=== PATIENT | male | born 1960 | race Caucasian/White ===

== ENCOUNTER 2024-01-23 12:06 | Outpatient (CLI) | payer MEDICAID, SELFPAY ==
--- NOTE | ~2024-01-23 | XR_ITS ---
Right Shoulder Technique: AP and scapular Y views were obtained. Clinical History: Pain Findings: No fracture or dislocation is seen. Osseous alignment is anatomic. The glenohumeral joint i s intact. Mild AC joint degenerative change present. Soft tissues are unremarkable. Impression: Mild AC joint degenerative change present. Reviewed, dictated and finalized at location . Impression: Mild AC joint degenerative change present.
== END 2024-01-23 12:07 | disposition home or self-care (01) ==
PROVIDERS: PCP Physician Assistant; Visit Provider Physician Assistant
DX: M25.511 Pain in right shoulder (principal)
CPT/HCPCS: 73030

== ENCOUNTER 2024-01-29 10:52 | Outpatient (CLI) | payer MEDICAID, SELFPAY ==
--- NOTE | ~2024-01-29 | MR_ITS ---
MRI of the right shoulder Technique: Axial proton-density fat-sat images, coronal proton density fat-sat and T2 fat-sat images, and sagittal T1-weighted and T2 fat-sat images were acquired. Clinical History: Pain Findings: There is moderate AC joint degenerative change, with mild bony productive change in particu lar at the distal clavicle. Coracoclavicular, coracoacromial, and coracohumeral ligaments are intact. There is mild supraspinatus and infraspinatus tendinosis, without partial or full-thickness tear. Sub scapularis tendon is intact. Tendon of the long head of the biceps is intact. Suspected focal, subtle, linear superior labral tear, without anterior or posterior extension. There is thickening and increased signal of the inferior glenohumeral ligament. There is no significa nt degenerative change or effusion of the glenohumeral joint. No fluid distention of the subacromial/ subdeltoid bursa. No muscle atrophy or edema. Impression: Findings suggestive of adhesive capsulitis. Mild rotator cuff tendinosis. Possible subtle linear superior labral tear. Moderate AC joint degenerative change. Reviewed, dictated and finalized at [facility]. Impression: Findings suggestive of adhesive capsulitis. Mild rotator cuff tendinosis. Possible subtle linear superior labral tear. Moderate AC joint degenerative change.
== END 2024-01-29 10:53 ==
LOC: MICIMG 10:53
PROVIDERS: PCP Physician Assistant; Visit Provider Physician Assistant
DX: M25.511 Pain in right shoulder (principal); M77.8 Other enthesopathies, not elsewhere classified
CPT/HCPCS: 73221

== ENCOUNTER 2024-07-06 10:17 | Outpatient (CLI) | payer MEDICAID, SELFPAY ==
--- NOTE | ~2024-07-06 | XR_ITS ---
XR knee RT min 4V Ordering provider: Aron Tinsley, PA History: . PAIN IN RT KNEE AND PAIN IN LT FOOT . Comparison: None. FINDINGS: BONES: No acute fracture or dislocation. JOINT SPACES: Osteophyte formation of the tibial spines. Mild narrowing of the medial compartment. SOFT TISSUES: Normal. IMPRESSION: No acute osseous abnormality right knee. Mild osteoarthritic changes. Reviewed, dictated and finalized at location A. MICS TEST ENGINEER
--- NOTE | ~2024-07-06 | XR_ITS ---
XR foot LT min 3V Ordering provider: Aron Tinsley, PA History: . PAIN IN RT KNEE AND PAIN IN LT FOOT . Comparison: The FINDINGS: BONES: No acute fracture or dislocation. Calcaneal spur. Mild Hallux valgus. JOINT SPACES: Normal. No tarsal coalition. SOFT TISSUES: Normal. IMPRESSION: No acute osseous abnormality left foot. Reviewed, dictated and finalized at location A. R CUTTER MACHINE
== END 2024-07-06 10:18 | disposition home or self-care (01) ==
LOC: ANHIMG 10:20
PROVIDERS: PCP Physician Assistant; Visit Provider Physician Assistant
DX: M79.672 Pain in left foot (principal); M17.11 Unilateral primary osteoarthritis, right knee
CPT/HCPCS: 73564; 73630

== ENCOUNTER 2024-08-13 07:38 | Outpatient (CLI) | payer OTHER, SELFPAY ==
--- NOTE | ~2024-08-13 | US_ITS ---
Limited Abdominal Sonogram: Real-time sonographic imaging of the right upper quadrant was performed. Clinical History: Right upper quadrant pain Findings: The liver appears echogenic with no evidence of mass lesion or bile duct dilatation. Liver measures 21.6 cm in length. Main portal vein demonstrates normal direction of flow. The gallbladder is well distended, and appears normal with no evidence of gallstone or wall thickening. The common bi le duct measures 3 mm. The visualized pancreas, aorta, and IVC are unremarkable. Right kidney measur es 11.2 cm in length, without hydronephrosis or renal stone. Right renal cyst noted. Impression: Diffuse fatty infiltration of the liver, with associated hepatomegaly. Reviewed, dictated and finalized at location . [facility] Impression: Diffuse fatty infiltration of the liver, with associated hepatomegaly.
== END 2024-08-13 07:39 | disposition home or self-care (01) ==
PROVIDERS: PCP Physician Assistant; Visit Provider Physician Assistant
DX: R10.11 Right upper quadrant pain (principal); K76.0 Fatty (change of) liver, not elsewhere classified
CPT/HCPCS: 76705

== ENCOUNTER 2024-09-02 09:25 | Outpatient (CLI) | payer OTHER, SELFPAY ==
--- NOTE | 2024-09-03 21:36 | P.SLEEP_ITS ---
Sleep Study - Home Unattended Date of Study: 09/02/24 Ordering Provider: Aron Tinsley, GONZALEZ Interpreting Provider: So Cohen MD [place] Sleep Study Type: Alejo STAFFORD Height: 1.73 m Weight: 113.398 kg Body Mass Index: 38.0 Neck Circumference (inches): 19.25 [place]: 0 Reason for Sleep Study Loud snoring, witnessed apnea and choking with gasping during sleep, Sleep History Joe Chávez is a 64-year-old man who gives a history of loud snoring. He has a history of witnessed apneas. There is a history of choking and gasping during sleep. He does not have morning headaches. He does not awaken with a dry mouth or sore throat. He does not have nocturnal heartburn. He wakes twice at night to go urinate. The remainder of the sleep history appears negative. He does not have difficulty falling asleep or staying asleep. He does not have difficulty returning to sleep when he awakens at night. He is not anxious about sleep. He does not have an urge to move his legs at night. He does not have muscle weakness with strong emotion. He does not feel paralyzed on waking or falling asleep. He does not have vivid dreamlike scenes upon awakening or falling asleep. He does not dream during daytime naps. He does not grind his teeth at night or kick excessively during the night. Normal bedtime is 11:00 p.m., falling asleep within 15 minutes, spending 6 hours and 45 minutes in bed. Sometimes he feels restored upon awakening. He does not take any planned naps. He keeps the same schedule on weekends. [facility] Past Medical History Medical History (Updated 09/03/24 @ 21:57 by So Cohen MD) Rotator cuff injury Family History Family History (Updated 03/04/24 @ 07:38 by MANISH Delgado) Father Mother Sibling Sibling Heart disease Social History Social History (Updated 03/04/24 @ 07:39 by MANISH Delgado) Smoking status: Never smoker Second hand tobacco smoke exposure: Yes Alcohol intake: former Substance use: current Substance use type: marijuana Do You Feel Safe in your Home?: Yes Lack of Transportation: No Lack of Food: Never True Current Housing: I Have Housing Concerned About Future Housing: No Difficulty Paying Gas/Electric Bills: No Difficulty Paying for Meds: No Currently Unemployed: No Education: High School Diploma/GED Difficulty w/ Childcare or Family Care: No Living arrangements: with family Occupation/Education: retired Additional occupation/education comments: [email or web address] Gender identity (if verbalized by the patient): Male Medications Home Medications ?Medication ?Instructions ?Recorded ?Confirmed ?Type diclofenac sodium 75 mg 75 mg PO BID #60 tabs 03/04/24 03/04/24 Rx tablet,delayed release Medications: Office note indicates that he takes Cialis 10 mg as needed. Sleep Procedure The sleep study was completed using [employer] a technically adequate device with seven channels: peripheral arterial tone, actigraphy, body position, snore, respiratory movement, pulse oximetry, sleep staging, and heart rate. Prior to using the device, the patient received verbal and written instructions for its application and was provided with the help desk phone number for additional telephonic instruction with 24-hour availability of qualified personnel to answer questions. Sleep Architecture The total recording time is 6 hrs 23 min. The total sleep time is 5 hrs 59 min. Sleep latency is 17 minutes. REM latency is 99 minutes. The patient had 4 episodes of waking. Sleep architecture shows 2.8% deep sleep, 84.3% light sleep, and 12.9% stage REM. The patient spent 53.1% of total sleep time in the supine position. Sleep efficiency was 93%. Respiratory Analysis The overall AHI (pAHI 3%:) is 95.3. The central AHI is 11.7. The AHI was 94.6 in NREM and 100.4 in REM sleep. The AHI was 101.2 in Supine and 88.7 in Non-supine sleep. Percent of Geovani Jade respirations is 0.0. Oximetry Data The oxygen desaturation index (BEL 4%:) is 84.8. The mean saturation is 91%, and the lowest saturation is 73%. Time spent with saturation < 88% is 63.1 minutes. Snoring Profile Snoring average intensity is 52 dB. The patient snored above 45 decibels for 222.3 minutes, 61.9% of sleep time. Cardiac Profile The average pulse rate is 48 beats per minutes. The lowest pulse rate is 38 bpm. The highest pulse rate is 104 beats per minute. The cardiac rhythm analysis and sleep does not show significant suspected atrial fibrillation. Assessment and Plan Assessment and Plan (1) Obstructive sleep apnea: Code(s): G47.33 - Obstructive sleep apnea (adult) (pediatric) Status: Acute Assessment and Plan: This home sleep test using [employer] on 09/02/2024 shows extremely severe obstructive sleep apnea, the apnea-hypopnea index is 81.9, minimum desaturation 73% and persistent loud snoring. The patient also had a central apnea-hypopnea index of 11.7 using a 3% criteria. No Geovani-Jade respirations noted. This patient needs to have a CPAP titration without delay. A sleep aid such as Ambien 5 mg to 10 mg or Lunesta 2 mg to 3 mg may be beneficial to assist the patient in falling asleep and staying asleep during the titration. He should not take the sleep aid at home. He should have it with him to use, if needed, at the sleep lab if necessary. Given the elevated central apnea index, an echocardiogram is recommended. Elevated central apneas can be seen in patients with strokes, congestive heart failure, opioid use and alcohol dependence. The patient does not have a history of these conditions per the office note. BMI is 38. Weight management is advised. Clinical data suggests that weight loss of 10% can reduce the severity of respiratory events and snoring and improve AHI by as much as 25%. Data The data obtained during this sleep study is adequate for interpretation. Certification This sleep study has been reviewed by a board certified sleep medicine physician.
[2024-09-03 21:55] VITALS: BMI 38.0
== END 2024-09-03 11:13 | disposition home or self-care (01) ==
LOC: ANHCSM 09:26
PROVIDERS: PCP Physician Assistant; Visit Provider Physician Assistant
DX: G47.33 Obstructive sleep apnea (adult) (pediatric) (principal)
CPT/HCPCS: 95800

== ENCOUNTER 2024-09-20 00:18 | Observation (INO) | payer OTHER, SELFPAY ==
[2024-09-20] VITALS (34 sets, daily range): BP systolic 133–195; BP diastolic 59–95; PULSE 46–72; RESP 14–28; TEMP 36.3–36.9; O2SAT 93–100; BMI 37.6; BMI 37.8
--- NOTE | ~2024-09-20 | CT_ITS ---
CT of the Abdomen and Pelvis: Indication: Abdominal pain Technique: 2.5 mm axial scans were obtained through the abdomen and pelvis following intravenous adm inistration of 100 cc of Omnipaque 350. Dose reduction technique was used on this scan by utilizing a utomated exposure control and iterative reconstruction technique. The dose-length product (DLP) was 1 595.08 mGy-cm. Findings: Scans through the lung bases are unremarkable. There is diffuse hepatic steatosis. The spleen, pancreas, gallbladder, adrenals and kidneys are withi n normal limits. No evidence of aortic aneurysm. No lymphadenopathy. No bowel obstruction or bowel wall thickening. There is no evidence to suggest acute appendicitis. Sm all fat-containing umbilical hernia noted. Images through the pelvis were performed. Urinary bladder unremarkable. No pelvic mass seen. No ascit es. Impression: No acute abnormalities seen. Diffuse hepatic steatosis. Small fat-containing umbilical hernia. Reviewed, dictated and finalized at [facility]. OR SUSTAINABILITY CONSULTANT Impression: No acute abnormalities seen. Diffuse hepatic steatosis. Small fat-containing umbilical hernia.
--- NOTE | ~2024-09-20 | NM_ITS ---
EXAMINATION: NM mario stress w perfusion DATE: 09/21/2024 13:12 INDICATION: Abnormal EKG. TECHNIQUE: Rest images were obtained following intravenous administration of 9 mCi Tc99m tetrofosmin (Myoview). The patient was infused intravenously with Lexiscan (Regadenoson). Then, 28.4 mCi Tc99m te trofosmin (Myoview) was administered intravenously, and stress images were obtained. Data was reconst ructed into short axis and horizontal and vertical long axis SPECT images. Gated SPECT images were al so obtained. COMPARISON: None. FINDINGS: There is no definite reversible or fixed perfusion abnormality to suggest ischemia or infar ction. There is normal left ventricular chamber size, wall motion and ejection fraction. Left ventr icular ejection fraction measures >70%. IMPRESSION: 1. Normal myocardial perfusion at rest and during stress. 2. Left ventricular ejection fraction measuring >70%. Reviewed, dictated and finalized at location A. NG ENGINEERING TECHNOLOGIST
--- NOTE | ~2024-09-20 | XR_ITS ---
Portable chest x-ray Comparison: None Clinical History: Epigastric pain Findings: Lungs are clear, without focal consolidation or pleural effusion. Cardiomediastinal silho uette is unremarkable. Bones and soft tissues are unremarkable. Impression: Clear lungs. Reviewed, dictated and finalized at location M. MEDICARE Impression: Clear lungs.
--- NOTE | ~2024-09-20 | NM_ITS ---
EXAMINATION: NM hepatobiliary w pharm DATE: 09/22/2024 10:51 INDICATION: Right upper quadrant abdominal pain. COMPARISON: CT abdomen and pelvis 09/20/2024 TECHNIQUE: 5.5 mCi Tc-99m mebrofenin (Choletec) was administered intravenously. Scintigraphic images of the abdomen were obtained for one hour. Then, 2.4 mcg sincalide (Kinevac) IV was administered, an d imaging was continued for 30 minutes. FINDINGS: There is normal clearance of radiotracer from the blood pool. There is homogeneous tracer u ptake by the liver. Activity progresses to the bowel and gallbladder. Gallbladder ejection fraction (GBEF) was 23%. Note that most patients with gallbladder dysfunction have GBEF < 35%, which overlaps with the broad normal range of 10-90%. IMPRESSION: 1. Gallbladder ejection fraction in the lower range of normal. Note that this value overlaps with th e range of values that may be seen with gallbladder dysfunction and/or chronic cholecystitis if there is appropriate clinical correlation. Reviewed, dictated and finalized at location A. COACH IMPRESSION: 1. Gallbladder ejection fraction in the lower range of normal. Note that this value overlaps with the range of values that may be seen with gallbladder dysfu nction and/or chronic cholecystitis if there is appropriate clinical correlatio nWillian
--- OUTSIDE RECORDS SUMMARY | 2024-09-20 00:21 | XMS_ITS | Clinical Summary ---
Author Organization [facility] Address [address] [place] [address] Phone Care Team Providers Care Signal Operator Name Role Phone Provider, None Primary Care Provider Unavailabl e Allergies No known active allergies Medications tadalafil (CIALIS) 20 MG TabletIndications: Erectile dysfunction due to arterial insufficiency Take 1 Tab by mouth as needed for Erectile Dysfunction. 30 Tab 3 0 Active Family History Medical History Relation Name Comments No Known Problems Father No Known Problems Mother Relation Name Status Comments Father Mother Social History Tobacco Use Types Packs/Day Years Used Date Smoking Tobacco: Never Smokeless Tobacco: Never Alcohol Use Standard Drinks/Week Comments Yes 0 (1 standard drink = 0.6 oz pur e alcohol) Sex and Gender Information Value Date Recorded Sex Assigned at Not on file Legal Sex Male 11:26 AM ELIGIBILITY COUNSELOR Gender Identity Not on file Sexual Orientation Not on file Last Filed Vital Signs Vital Sign Reading Time Taken Comments Blood Pressure 110/70 09/01/2019 3:01 PM ELIGIBILITY COUNSELOR Pulse 59 09/01/2019 3:01 PM ELIGIBILITY COUNSELOR Temperature 36.5 ??C (97.7 ??F) 09/01/2019 3:01 PM CS T Respiratory Rate 14 09/01/2019 3:01 PM ELIGIBILITY COUNSELOR Oxygen Saturation 97% 09/01/2019 3:01 PM ELIGIBILITY COUNSELOR Inhaled Oxygen Concentration - - Weight 101.6 kg (224 lb) 09/01/2019 3:01 PM ELIGIBILITY COUNSELOR Height 172.7 cm (5' 8 ) 09/01/2019 3:01 PM ELIGIBILITY COUNSELOR Body Mass Index 34.06 09/01/2019 3:01 PM ELIGIBILITY COUNSELOR Plan of Treatment Health Maintenance Due Date Last Done Comments Hepatitis C Virus (HCV) Screening 1961 TdaP Immunization 1961 Colonoscopy 2006 Colorectal Cancer Screening 2006 Cologuard 2011 Immunochemical Fecal Occult Blood 2011 Pneumococcal Immunization (5 0+ years) (1 of 1 - PCV) 2011 Zoster Immunization (1 of 2) 2011 PSA Discussion 2016 Influenza Immunization (#1) 2024 SARS-COV-2 Immunization ( - 2023-25 season) 2024 Respiratory Syncytial Virus (RSV) Immunization (Adult) (1 - 1-dose 75+ series) 2036 Hepatitis B Immunization Aged Out No longer eligible based on patient's age to complete this topic Meningococcal Immunization (ACWY) Aged Out No longer eligible based on patient's age to complete this topic Pneumococcal Immunization Combined Aged Out No longer eligible based on patient's age to complete this topic Rotavirus Immunization Aged Out No lo nger eligible based on patient's age to complete this topic Care Teams Signal Operator Relationship Specialty Start Date End Date Provider, None [place] PCP - General 09/01/19
--- OUTSIDE RECORDS SUMMARY | 2024-09-20 00:21 | XMS_ITS | Data Portability ---
Author Organization [facility] Address [address] [facility] / [place] [address] Care Team Providers Care Ab Initio Etl Developer Name Role Phone ELIUD TINSLEY Primary Care Provider [phone] Assessment No assessment recorded. Plan of Treatment Reminders Order Date Submit Date Provider Last Modified By Organization Details Last Modified Time Details Appointments None recorded. Lab CBC 2023 024 [facility], [address] [place], [place] [address]elad[address], [address], [place], [address], 4 06:15:45 CMP, serum or plasma 2023 024 [facility], [address], [address], [place], [address], 4 06:15:44 lipid panel, serum 2023 024 [facility], [address] [place] [address], [address], [place], [address], 4 06:15:43 HbA1c (hemoglobi n A1c), blood 2023 024 [facility] In-Office Order, Internal Use Only DO Not Attach Compendium DO Not Attach Compendium, Do Not Delete/merge, [id number] 4 10:51:16 PSA, serum or plasma 2023 024 [facility], [address] [place] [address], [address], 4 13:09:43 noninvasiv e colorectal cancer DNA + occult blood screening, QL, stool 2023 024 [place] [facility] (Cologuard Orders Only), [address], [address], [place], [address], 4 10:21:12 Referral physical therapist referral 2023 024 [facility], [address], [place], [address], 5 13:18:11 chief investment officer referral 2023 024 [facility], [address] [place] [address], [address], [place], [address], 4 06:35:22 Procedures None recorded. Surgeries None recorded. Imaging exercise stress test 2023 024 [facility], [facility] [address], [place], [address], 4 12:21:14 XR, shoulder 2023 024 [facility] (Imaging), [address] [facility] [address], [place], [address], 4 14:11:30 home sleep study 2023 024 [facility] ([facility]), [address] [facility], [place], [address], 5 15:26:18 XR, knee 2023 024 [facility], [address], [address], [place], [address], 4 14:26:05 XR, foot 2023 024 [facility], [address], [address], [place], [address], 16:16:56 luis enrique HAUSER 2023 024 [facility], [address], [address], [place], [address], 4 10:03:16 Medication Orders lisinopril 20 mg tablet 2023 [place] [id number], [address], [place], [place], [id number], 10:47:54 naproxen 500 mg tablet 2023 [facility][id number], [address], [place], [place], [id number], 11:55:47 Patient TargetsNo targets recorded. Patient Instructions Encounter Date Encounter Id Patient Instructions Last Modified By Organization Details Last Modified Time 12/30/2023 [id number] A healthy lifestyle: care instructions jnanney Not available 12/30/2023 10:19:45 learning about high blood pressure jnanney Not available 12/30/2023 10:19:45 01/23/2024 [id number] A healthy lifestyle: care instructions jnanney Not available 01/23/2024 11:11:02 learning about high blood pressure jnanney Not available 01/23/2024 11:09:35 07/05/2024 [id number] sleep apnea: car e instructions jnanney Not available 07/05/2024 11:55:50 A healthy lifestyle: care instructions jnanney Not available 07/05/2024 11:55:47 07/26/2024 [id number] A healthy lifestyle: care instructions jnanney Not available 07/26/2024 12:19:15 Reason for Referral Physical Therapist Referral for Pain of right knee joint Referring Physician: Eliud Tinsley, Family Medicine, Encounter Date: 07/26/2024 Hydrodynamics Professor Referral for Pain in left foot Referring Physician: Eliud Tinsley, Family Medicine, Encounter Date: 07/26/2024 Results Created Date Observation Date Name Description Value Unit Range Abnormal Flag Note LastModifiedBy Organization Detail LastModifiedTime 12/30/19 24 12/30/2023 LIPID PANEL cholesterol, total 168 mg/dL 100-19 9 Not Available [address], [address], 12/31/2023 06:15:43 12/30/19 24 12/30/2023 LIPID PANEL triglyceride s 67 mg/dL 0-149 Not Available [address], [address], 12/31/2023 06:15:43 12/30/19 24 12/30/2023 LIPID PANEL HDL cholesterol 58 mg/dL 40-999 Not Available [address], [address], 12/31/2023 06:15:43 12/30/1912/30/2023 LIPID PANEL VLDL cholesterol susan 13 mg/dL 5-40 Not Available [address], [address], 12/31/2023 06:15:43 12/30/19 24 12/30/2023 LIPID PANEL LDL chol calc (nih) 106 mg/dL 0-99 above high normal Not Available [address], [address], 12/31/2023 06:15:43 12/30/19 24 12/30/2023 COMP. METAB OLIC PANEL (14) glucose 128 mg/dL 70-99 above high normal Not Available [address], [address], 12/31/2023 06:15:43 12/30/19 24 12/30/2023 COMP. METAB OLIC PANEL (14) BUN 22 mg/dL 8-27 Not Available [facility] & [address], [address], 12/31/2023 06:15:43 12/30/19 24 12/30/2023 COMP. METAB OLIC PANEL (14) creatinine 0.89 mg/dL 0.76-[address] [facility] & [address], [address], 12/31/2023 06:15:43 12/30/19 24 12/30/2023 COMP. METAB OLIC PANEL (14) eGFR 97 >=60 Units for eGFR value s are mL/mi n/1.7 3 The eGFR Calcu latio n has not been valid ated for patie nts under the age of 18. If test resul ts are displ ayed for a patie nt under the age of 18, disre kristopher that value . Not Available [facility] & [address], [address], 12/31/2023 06:15:43 12/30/19 24 12/30/2023 COMP. METAB OLIC PANEL (14) BUN/creatini ne ratio 25 10-24 above high normal Not Available [address], [address], 12/31/2023 06:15:43 12/30/19 24 12/30/2023 COMP. METAB OLIC PANEL (14) sodium 142 mmol/ L 134-14 4 Not Available [address], [address], 12/31/2023 06:15:43 12/30/19 24 12/30/2023 COMP. METAB OLIC PANEL (14) potassium 4.7 mmol/ L 3.5-5. 2 Not Available [address], [address], 12/31/2023 06:15:43 12/30/19 24 12/30/2023 COMP. METAB OLIC PANEL (14) chloride 102 mmol/ L 96-106 Not Available [address], [address], 12/31/2023 06:15:43 12/30/19 24 12/30/2023 COMP. METAB OLIC PANEL (14) carbon dioxide, total 26 mmol/ L 20-29 Not Available [address], [address], 12/31/2023 06:15:43 12/30/19 24 12/30/2023 COMP. METAB OLIC PANEL (14) calcium 9.8 mg/dL 8.6-10 .2 Not Available [address], [address], 12/31/2023 06:15:43 12/30/19 24 12/30/2023 COMP. METAB OLIC PANEL (14) protein, total 7.8 g/dL 6.0-8. 5 Not Available [address], [address], 12/31/2023 06:15:43 12/30/19 24 12/30/2023 COMP. METAB OLIC PANEL (14) albumin 4.7 g/dL 3.9-4. 9 Not Available [address], [address], 12/31/2023 06:15:43 12/30/19 24 12/30/2023 COMP. METAB OLIC PANEL (14) globulin, total 3.1 g/dL 1.5-4. 5 Not Available [address], [address], 12/31/2023 06:15:43 12/30/19 24 12/30/2023 COMP. METAB OLIC PANEL (14) A/G ratio 2.0 1.2-2. 2 Not Available [address], [address], 12/31/2023 06:15:43 12/30/19 24 12/30/2023 COMP. METAB OLIC PANEL (14) bilirubin, total 0.5 mg/dL 0.0-1. 2 Not Available [address], [address], 12/31/2023 06:15:43 12/30/19 24 12/30/2023 COMP. METAB OLIC PANEL (14) alkaline phosphatase 80 IU/L 44-121 Not Available [address], [address], 12/31/2023 06:15:43 12/30/19 24 12/30/2023 COMP. METAB OLIC PANEL (14) AST (SGOT) 31 IU/L 0-40 Not Available [address], [address], 12/31/2023 06:15:43 12/30/19 24 12/30/2023 COMP. METAB OLIC PANEL (14) ALT (SGPT) 45 IU/L 0-44 above high normal Not Available [address], [address], 12/31/2023 06:15:43 12/30/19 24 12/30/2023 CARDI OVASC ULAR REPOR T interpretati on Note Suppl ement al repor t is avail able. Not Available [address], [address], 12/31/2023 06:15:44 12/30/19 24 12/30/2023 CARDI OVASC ULAR REPOR T pdf . Not Available [address], [address], 12/31/2023 06:15:44 12/30/19 24 12/30/2023 CBC, PLATE LET, NO DIFFE RENTI AL WBC 6.8 x10e3 /uL 3.4-10 .8 Not Available [address], [address], 12/31/2023 06:15:45 12/30/1912/30/2023 CBC, PLATE LET, NO DIFFE RENTI AL RBC 5.50 x10e6 /uL 4.14-5 .80 Not Available [address], [address], 12/31/2023 06:15:45 12/30/1912/30/2023 CBC, PLATE LET, NO DIFFE RENTI AL hemoglobin 16.1 g/dL 13.0-1 7.7 Not Available [address], [address], 12/31/2023 06:15:45 12/30/1912/30/2023 CBC, PLATE LET, NO DIFFE RENTI AL hematocrit 50.7 % 37.5-5 1.0 Not Available [address], [address], 12/31/2023 06:15:45 12/30/1912/30/2023 CBC, PLATE LET, NO DIFFE RENTI AL MCV 92 fL 79-97 Not Available [address], [address], 12/31/2023 06:15:45 12/30/1912/30/2023 CBC, PLATE LET, NO DIFFE RENTI AL MCH 29.3 pg 26.6-3 3.0 Not Available [address], [address], 12/31/2023 06:15:45 12/30/19 24 12/30/2023 CBC, PLATE LET, NO DIFFE RENTI AL MCHC 31.8 g/dL 31.5-3 5.7 Not Available [address], [address], 12/31/2023 06:15:45 12/30/19 24 12/30/2023 CBC, PLATE LET, NO DIFFE RENTI AL RDW 12.2 % 11.5-1 4.5 Not Available [address], [address], 12/31/2023 06:15:45 12/30/19 24 12/30/2023 CBC, PLATE LET, NO DIFFE RENTI AL platelets 229 x10e3 /uL 150-45 0 Mean Plate let Volum e 11.0 fL 8.9-1 2.7 N Not Available [address], [address], 12/31/2023 06:15:45 12/30/19 24 12/30/2023 CBC, PLATE LET, NO DIFFE RENTI AL NRBC 0 % 0-0 Not Available [address], [address], 12/31/2023 06:15:45 12/30/1912/30/2023 HbA1c (hemo globi n A1c), blood HbA1c 6.7 Not Available In-Office Order Internal Use Only DO Not Attach Compendium DO Not Attach Compendium, Do Not Delete/merge, [id number] 12/30/2023 10:17:44 01/23/20 24 01/24/2024 PSA (SERI AL MONIT OR) prostate specific Ag 0.6 NG/mL 0.0-4. 0 Elias ECLIA metho dolog y. Accor savannah to the Ameri can Urolo gical Assoc iatio n, Serum PSA shoul d decre ase and remai n at undet ectab le level s after radic al prost atect luz marina. The AUA defin es bioch emica l recur rence as an initi al PSA value 0.2 ng/mL or great er follo wed by a subse quent confi rmato ry PSA value 0.2 ng/mL or great er. Value s obtai marcia with diffe rent assay metho ds or kits canno t be used inter landis eably . Resul ts canno t be inter prete d as absol agua caliente evide nce of the prese nce or absen ce of xiao zuniga disea se. Not Available [facility] ([facility]) [address] [facility], [place], [address], 01/26/2024 13:09:43 01/23/20 24 01/26/2024 PSA (SERI AL MONIT OR) pdf . Not Available [facility] ([facility]) [address] [facility], [place], [address], 01/26/2024 13:09:43 02/04/20 24 02/04/2024 COLOG UARD cologuard result reportable NEGATI VE negati ve normal NEGAT DAQUAN TEST RESUL T. A negat daquan Colog uard resul t indic ates a low likel ihood that a color ectal cance r (CRC) or advan shelly adeno ma (sj omato us polyp s with more advan shelly pre-m align ant featu res) is prese nt. The chan e that a perso n with a negat daquan Colog uard test has a color ectal cance r is less than 1 in 1500 (nega tive predi ctive value >99.9 %) or has an advan shelly adeno ma is less than 5.3% (nega tive predi ctive value 94.7% ). These data are based on a prosp ectiv e cross -sect ional study of 10,00 0 indiv idual s at [place] [facility] risk for color ectal cance r who were scree marcia with both Colog uard and colon oscop y. (Lluvia mello T. et al, N Engl J Med 2014; 370(1 4):12 86-12 97) The mile l value (refe rence range ) for this assay is negat daquan. COLOG UARD RE-SC REENI NG RECOM MENDA TION: Perio dic color ectal cance r scree reena is an impor tant part of preve ntive healt hcare for asymp tomat ic [facility]iv [facility]ual [facility] [place] for color ectal cance r. Follo wing a negat daquan Colog uard resul t, the Ameri can Cance r Socie ty and U.S. Multi -Soci ety Task Force scree reena guide lines recom mend a Colog uard re-sc reeni ng inter patricia of 3 years . Refer ences : Ameri can Cance r Socie ty Guide line for Color ectal Cance r Scree reena: https ://teto w.can cer.o rg/ca ncer/ colon -rect al-ca ncer/ detec tion- diagn osis- stagi ng/ac s-rec ommen datio ns.ht ml.; Param LOW, Yessy MORLEY, Andrey AlexandreK, Color ectal Cance r Scree reena: Recom menda tions for Physi cians and Patie nts from the U.S. Multi -Soci ety Task Force on Color ectal Cance r Scree reena , Rai arteaga y 2017; 112:1 016-1 030. TEST DESCR IPTIO N: Carnot-Moon site algor ithmi c lyle sis of stool DNA-b iomar kers with hemog lobin immun oassa y. Quant itati ve value s of indiv idual bioma rkers are not repor table and are not assoc iated with indiv idual bioma rker resul t refer ence range s. Colog uard is inten ded for color ectal cance r scree reena of adult s of eithe r sex, 45 years or older , who are at [facility] for color ectal cance r (CRC) . Colog uard has been appro gretta for use by the U.S. FDA. The perfo rmanc e of Colog uard was estab lishe d in a cross secti onal study of [facility] adult s aged 50-84 . Colog uard perfo rmanc e in patie nts ages 45 to 49 years was estim ated by sub-g roup lyle sis of near- age group s. Colon oscop ies perfo rmed for a posit daquan resul t may find as the most clini bertram signi fican t lesio n: color ectal cance r [4.0% ], advan shelly adeno ma (incl uding sessi le demetrio criss polyp s great er than or equal to 1cm diame ter) [20%] or non- advan shelly adeno ma [31%] ; or no color ectal neopl ronan [45%] . These estim ates are deriv ed from a prosp ectiv e cross -sect ional scree reena study of 0 indiv idual s at [facility] risk for color ectal cance r who were scree marcia with both Colog uard and colon oscop y. (Lluvia Ferrer et al, N Engl J Med 2014; 370(1 4):12 86-12 97.) Colog uard may produ ce a false negat daquan or false posit daquan resul t (no color ectal cance r or preca ncero us polyp prese nt at colon oscop y follo w up). A negat daquan Colog uard test resul t does not guara ntee the absen ce of CRC or advan shelly adeno ma (pre- cance r). The curre nt Colog uard scree reena inter patricia is every 3 years . (Amer ican Cance r Socie ty and U.S. Multi -Soci ety Task Force ). Colog uard perfo rmanc e data in a 0 patie nt pivot al study using colon oscop y as the refer ence metho d can be acces sed at the follo wing locat ion: www.e xactl abs.c om/erick mendiola . Addit ional descr iptio n of the Colog uard test proce ss, warni ngs and preca ution s can be found at www.c carrillo guajardod.c om. Not Available [facility] (Cologuard Orders Only) [address], [place], [address], 02/11/2024 10:21:11 01/23/20 24 01/23/2024 XR, shoul shannon No observ ation record ed. [address], [place], [address], 01/23/2024 14:34:33 01/29/20 24 01/29/2024 MRI, shoul shannon, w/o contr ast No observ ation record ed. [facility] [address], [place], [address], 01/29/2024 15:13:17 01/30/20 24 01/30/2024 MRI, shoul shannon, w/o contr ast No observ ation record ed. [facility] [address], [place], [address], 01/30/2024 09:46:16 01/30/20 24 01/30/2024 XR, shoul shannon No observ ation record ed. [facility] [place] [facility] [address] [facility] [address], [place], [address], 01/30/2024 09:49:15 07/06/20 24 07/06/2024 XR, knee No observ ation record ed. [address], [place], [address], 07/07/2024 09:00:35 07/06/20 24 07/06/2024 XR, foot No observ ation record ed. [address], [place], [address], 07/07/2024 09:00:35 08/13/20 24 08/13/2024 subhash HAUSER r No observ ation record ed. [address], [place], [address], 08/13/2024 15:52:52 09/03/19 25 09/02/2024 home sleep study No observ ation record ed. [address] [facility], [place], [address], 09/06/2024 10:47:17 09/06/1909/02/2024 home sleep study No observ ation record ed. [facility] [address] [facility], [place], [address], 09/06/2024 12:00:44 Result Notes None recorded. Procedures Surgical History Date Name Laterality Status Provider Name and Address Organization Details Recorded Time partial repair of rotator cuff completed Mandi Diaz MA ID - SI 12/30/2023 10:01:10 Imaging Results Imaging Date Name Status [facility]Modified by [facility] Details LastModified Time 01/23/2024 XR, shoulder completed [address] [facility], [place], [address], 01/23/2024 14:34:33 01/29/2024 MRI, shoulder, w/o contrast completed [facility] [address], [place], [address], 01/29/2024 15:13:17 01/30/2024 MRI, shoulder, w/o contrast completed [facility] [address], [place], [address], 01/30/2024 09:46:16 01/30/2024 XR, shoulder completed [facility] [place] [facility] [address] [facility] [address], [place], [address], 01/30/2024 09:49:15 07/06/2024 XR, knee completed [address] [place] [address], [address], 07/07/2024 09:00:35 07/06/2024 XR, foot completed [address] [place] [address], [address], 07/07/2024 09:00:35 08/13/2024 US, gallbladder completed [facility] [address], [place], [address], 08/13/2024 15:52:52 09/02/2024 home sleep study completed [facility] [address], [place], [address], 09/06/2024 10:47:17 09/02/2024 home sleep study completed [facility] [address] [facility], [place], [address], 09/06/2024 12:00:44 Procedure Notes None recorded. Medical Equipment None Reported. Allergies No known drug allergies Medications Name Sig Start Date Stop Date Status Note LastModified by Organization Details LastModified Time lisinopril 20 mg tablet Take 1 tablet every day by oral route for 90 days. 01/22 completed Not Available Not Available Not Available naproxen 500 mg tablet Take 1 tablet twice a day by oral route for 90 days. 2023 active Not Available Not Available Not Avai lable Cialis 10 mg tablet Take 1 tablet every day by oral route. active Not Available Not Available No t Available Vitals Date Recorded Body weight Provider Name an d Address Organization Details Last Updated DateTime 12/30/2023 952298.54 g Mandi Diaz MA [facility] SI 024 09:57:46 Date Recorded Body mass index (BMI) Body height Provider Name and Address Organization Details Last Updated DateTime 12/30/2023 37.1 kg/m2 172.72 cm ZIA Zimmerman [facility] 12/30/2023 09:58:32 Date Recorded Oxygen saturation Oxygen saturation in Arterial blood by Pulse oximetry Provider Name and Address Organization Details Last Updated DateTime 12/30/2023 94 % 94 % ZIA Zimmerman [facility] 12/30/2023 10:03:44 Date Recorded Heart rate Provider Name an d Address Organization Details Last Updated DateTime 12/30/2023 55 /min ZIA Zimmerman [facility] 12/30/19 10:03:47 Date Recorded Body height Provider Name an d Address Organization Details Last Updated DateTime 01/23/2024 172.72 cm Tracie Fleming MA [facility] 01/23/20 10:46:26 Date Recorded Body mass index (BMI) Provider Name and Address Organization Details Last Updated DateTime 01/23/2024 37.7 kg/m2 Tracie Fleming MA [facility] 01/23/20 10:47:01 Date Recorded Body weight Provider Name an d Address Organization Details Last Updated DateTime 01/23/2024 084151.91 g Tracie Fleming MA [facility] 024 10:47:02 Date Recorded Oxygen saturation Oxygen saturation in Arterial blood by Pulse oximetry Provider Name and Address Organization Details Last Updated DateTime 01/23/2024 96 % 96 % Tracie Fleming MA [facility] 01/23/2024 10:48:56 Date Recorded Heart rate Provider Name an d Address Organization Details Last Updated DateTime 01/23/2024 43 /min Tracie Fleming MA [facility] 01/23/20 10:48:59 Date Recorded Body height Provider Name an d Address Organization Details Last Updated DateTime 07/05/2024 172.72 cm Tracie Fleming MA [facility] 07/05/20 11:23:41 Date Recorded Body mass index (BMI) Body weight Provider Name and Address Organization Details Last Updated DateTime 07/05/2024 38.5 kg/m2 934016.87 g Tracie Fleming MA [facility] 07/05/2024 11:24:39 Date Recorded Oxygen saturation Oxygen saturation in Arterial blood by Pulse oximetry Provider Name and Address Organization Details Last Updated DateTime 07/05/2024 95 % 95 % Tracie Fleming MA [facility] 07/05/2024 11:29:12 Date Recorded Heart rate Provider Name an d Address Organization Details Last Updated DateTime 07/05/2024 56 /min Tracie Fleming MA [facility] 07/05/20 11:29:17 Date Recorded Body height Provider Name an d Address Organization Details Last Updated DateTime 07/26/2024 172.72 cm Mandi Diaz MA [facility] 07/26/20 11:55:09 Date Recorded Body mass index (BMI) Body weight Provider Name and Address Organization Details Last Updated DateTime 07/26/2024 38.2 kg/m2 293863.08 g Mandi Diaz MA [facility] 07/26/2024 11:55:15 Date Recorded Oxygen saturation Oxygen saturation in Arterial blood by Pulse oximetry Provider Name and Address Organization Details Last Updated DateTime 07/26/2024 98 % 98 % Mandi Diaz MA [facility] 07/26/2024 11:59:11 Date Recorded Heart rate Provider Name an d Address Organization Details Last Updated DateTime 07/26/2024 59 /min Mandi Diaz MA [facility] 07/26/20 11:59:15 Date Recorded Systolic blood pressure Diastolic blood pressure Provider Name and Address Organization Details Last Updated DateTime 12/30/2023 154 mm[Hg] 88 mm[Hg] Mandi Diaz MA [facility] 12/30/2023 10:03:42 Date Recorded Systolic blood pressure Diastolic blood pressure Provider Name and Address Organization Details Last Updated DateTime 01/23/2024 170 mm[Hg] 98 mm[Hg] Tracie Fleming MA [facility] 01/23/2024 10:49:45 Date Recorded Systolic blood pressure Diastolic blood pressure Provider Name and Address Organization Details Last Updated DateTime 07/05/2024 150 mm[Hg] 90 mm[Hg] Tracie Fleming MA [facility] 07/05/2024 11:29:02 Date Recorded Systolic blood pressure Diastolic blood pressure Provider Name and Address Organization Details Last Updated DateTime 07/26/2024 158 mm[Hg] 92 mm[Hg] Mandi Diaz MA [facility] 07/26/2024 11:59:40 Social History Question Answer Notes LastModified by Organizat ion Details LastModified Time Tobacco Smoking Status Never Smoker [facility] 12/30/2023 10:00:13 What Is Your Level Of Alcohol Consumption? None Information not available 12/30/2023 Are You Blind Or Do You Have Difficulty Seeing? No Information not available 12/30/2023 What Is Your Level Of Caffeine Consumption? Occasional Information not available 12/30/2023 Are You Currently Employed? No Retired Information not available 12/30/2023 Are You Deaf Or Do You Have Serious Difficulty Hearing? No Information not available 12/30/2023 What Type Of Diet Are You Following? REGULAR Information not available 12/30/2023 What Was The Date Of Your Most Recent Tobacco Screening? 07/26/2024 Information not available 07/26/2024 How Many Children Do You Have? -1 Information not available 12/30/2023 What Is Your Relationship Status? Information not available 12/30/2023 Do You Use Your Seat Belt Or Car Seat Routinely? Yes Information not available 12/30/2023 Are You Sexually Active? Yes Information not available 12/30/2023 Do You Have Smoke And Carbon Monoxide Detectors In Your Home? Yes Information not available 12/30/2023 Are You Passively Exposed To Smoke? No Information not available 12/30/2023 Do You Feel Stressed (tense, Restless, Nervous, Or Anxious, Or Unable To Sleep At Night)? [id number] Information not available 12/30/2023 Do You Use Any Illicit Or Recreational Drugs? Yes Marijuanna Information not available 12/30/2023 Do You Use Sunscreen Routinely? Yes Information not available 12/30/2023 Has Tobacco Cessation Counseling Been Provided? No Information not available 12/30/2023 Do You Or Have You Ever Used Any Other Forms Of Tobacco Or Nicotine? No Information not available 12/30/2023 Sex: Male Functional Status Question Answer Note LastModified by Organizat ion Details LastModified Time Are you able to care for yourself? Yes Information not available 12/30/2023 What is your exercise level? Occasional Information not available 12/30/2023 Mental Status None recorded. Family History Relationship Description Onset Age of this Age Resolved Age Notes LastModified by Organization Details LastModified Time Father Myocardial infarction [email or web address] Not available 12/29 09:59:29 Sister Myocardial infarction [email or web address] Not available 12/29 09:59:38 Medical History Condition Response Coronary Artery Disease N Other N High Blood Pressure N Atrial Fibrillation N Thyroid Problems N Kidney or Bladder Problems N Blood Clots N COPD N Depression N GI Problems N Skin Problems N Eating Disorder N Anemia N Heart Attack ([place]) N Anxiety Disorder N Diabetes N Muscle, Joint, or Bone Problems N Arthritis N Seizures/Epilepsy N Acid Reflux (GERD) N Cancer N Stroke N Asthma N Allergies N ADHD N Substance Abuse N High Cholesterol N Hepatitis N Liver Disease N Schizophrenia N Headaches N Osteoporosis N Heart Failure N Past Encounters Encounter ID Performer Location Encounter Start Date Encounter Closed Date Diagnosis/Indication Diagnosis SNOMED-CT Code Diagnosis ICD10 Code Diagnosis Note [id number] Eliud Tinsley PA-C [facility] [address] [place] [address] 12/30/2023 09:42:15 12/31/2023 12:30:25 Essential hypertension 60171482 I10 Pain of ri ght shoulder joint 7491299639 0348553 M25.511 Family his tory of Myocardial infarction 134332503 Z82.49 Overweight 731299564 E66 .3 Dyspnea on exertion 6084 5006 R06.09 [id number] Eliud Tinsley PA-C [facility] [address] [place] [address] 01/23/2024 10:40:41 01/28/2024 14:54:42 Pain of right shoulder joint [id number] 9750431 M25.511 Essential hypertension 91648920 I10 refuses meds Screening for malignant neoplasm of prostate 017450173 Z12.5 Screening for malignant neoplasm of colon 557884112 Z12.11 Overweight 521456103 E66 .3 [id number] Eliud Tinsley PA-C [facility] [address] [place] [address] 07/05/2024 10:55:42 07/07/2024 08:41:31 Pain of right knee joint 5341695168 81297 M25.561 Pain in left foot 620936 5891 44694 M79.672 Overweight 039603653 E66 .3 Obstructiv e sleep apnea syndrome 40693068 G47.33 [id number] NASIM Vogt [facility] [address] [place] [address] 07/26/2024 11:48:20 07/28/2024 15:16:08 Right upper quadrant pain 819626112 R10.11 Pain of ri ght knee joint 4907899909 12182 M25.561 Pain in left foot 569451 5194 28962 M79.672 Overweight 477061627 E66 .3 Health Concerns Section Related Observation LastModified by Organization Detai ls LastModified Time None Recorded Concern Status LastModified by Organization Details LastModified Time None Recorded Advance Directives Directive None Recorded Payers Encounter Date Sequence Insurance Name Policy Number Policy Fox Covered Member ID Fox Member ID Guarantor Name 12/30/2023 1 MEDICAID-ID: [facility] Joe Pulido Chávez [id number] Joe Chávez 01/23/2024 1 MEDICAID-ID: [facility] Joe Pulido Chávez [id number] Joe Chávez 07/05/2024 1 [facility] ON OR AFTER 02/22/21 (MEDICAID REPLACEMENT - HMO) Joe Nashterson [id number] Joe Chávez 07/26/2024 1 [facility] ON OR AFTER 02/22/21 (MEDICAID REPLACEMENT - HMO) Joe Chávez [id number] Joe Chávez Notes Date Note Type Note Provider Name and Address Organization Details Recorded Time 12/30/2023 text/html no pcp in 20 years..says he retired now he wants to live longer..has rt shoulder pain no known injury...quit drinking a couple years...father and sister both early of heart attacks.. has had a single episode of racing heart and mild chest pain while at rest...uses cialis... Eliud Tinsley PA-C Attn: [address]ing,[address] [place], [address], [facility] 12/30/2023 10:23:32 01/23/2024 text/html resistant to blood pressure meds due to friends talking about side effects..risks were explained...says he is making lifestyle changes....report s did not get stress test says was never contacted......rt shoulder no t responding to PT...wants to explore MRI... Eliud Tinsley PA-C Attn: [address] [place], [address], [facility] 01/23/2024 11:12:20 07/05/2024 text/html rt knee pain and left foot pain...foot forever and knee last 3 weeks...spontaneo us onset.. no known injury...no xrays on foot...was told plantar fasciitis once but this isnt same..hurts in arch and up ankle..was hiking alot and wseemed to inflame it...has been climbindg a ladder alot and wonders if that is the knee problem.. Eliud Tinsley PA-C Attn: Accounting,[address] [facility], [place], [address], [facility] 07/05/2024 11:55:55 07/26/2024 text/html gets sick when h e eats approx 30 minutes...rt side with yellow bile...also discuss foot and knee xrays...has been a mechanical shop laborer for 40 years...steps are worse...rt knee and left foot...foot doesnt feel like plantar fasciitis...has seen podiatry but not for this particular pain medial aspect... Eliud Tinsley PA-C Attn: Accounting,[address] [facility], [place], [address], [facility] 07/26/2024 12:20:28
--- OUTSIDE RECORDS SUMMARY | 2024-09-20 00:21 | XMS_ITS | Referral Summary ---
Author Organization [facility] Address [address] [place] [address] Care Team Providers Care Switch Crew Supervisor Name Role Phone Aron Tinsley Primary Care Provider [phone] Encounters Date Type Department Care Team Description 09/15/2024 Plan of Care Documentation [facility] Physical [facility] [place] [address] 09/15/2024 7:00 AM MACHINE PACK ASSEMBLER Therapy [facility] Physical [facility] [place] [address] Dipak Mitchell, PT Right knee pain, unspecified chronicity (Primary Dx); Pain in right foot 09/13/2024 7:45 AM MACHINE PACK ASSEMBLER [facility] [place] [address] Dipak Mitchell, PT Right knee pain, unspecified chronicity (Primary Dx); Pain in right foot 09/10/2024 7:45 AM MACHINE PACK ASSEMBLER [facility] [place] [address] Dipak Mitchell, PT Right knee pain, unspecified chronicity (Primary Dx); Pain in right foot 09/08/2024 7:00 AM MACHINE PACK ASSEMBLER Therapy [facility] [place] [address] Dipak Mitchell, PT Right knee pain, unspecified chronicity (Primary Dx); Pain in right foot 09/03/2024 7:00 AM MACHINE PACK ASSEMBLER Therapy [facility] [place] [address] Kiana Brandon, SOCIAL SCIENCES DEPARTMENT CHAIR Right knee pain, unspecified chronicity (Primary Dx); Pain in right foot 09/01/2024 7:45 AM MACHINE PACK ASSEMBLER Therapy [facility] Physical Therapy [facility] [place] [address] Kiana Brandon, SOCIAL SCIENCES DEPARTMENT CHAIR Right knee pain, unspecified chronicity (Primary Dx); Pain in right foot 08/27/2024 5:00 PM MACHINE PACK ASSEMBLER Therapy [facility] Physical Therapy [facility] [place] [address] Dipak Mitchell, PT Right knee pain, unspecified chronicity (Primary Dx); Pain in right foot 08/19/2024 Plan of Care Documentation [facility] Physical [facility] [place] [address] 08/19/2024 7:00 AM MACHINE PACK ASSEMBLER Therapy [facility] Physical [facility] [address] Dipak Mitchell, PT Right knee pain, unspecified chronicity from Last 3 Months Allergies No known active allergies Medications No known medications Active Problems No known active problems Social History Tobacco Use Types Packs/Day Years Used Date Smoking Tobacco: Never Assessed Sex and Gender Information Value Date Recorded Sex Assigned at Not on file Legal Sex Male 11:48 AM MACHINE PACK ASSEMBLER Gender Identity Not on file Sexual Orientation Not on file Plan of Treatment Not on file Insurance IDPA [facility] Care Teams Switch Crew Supervisor Relationship Specialty Start Date End Date Aron Tinsley PA [address] [place] [address] PCP - General Family Practice 12/31/23
--- OUTSIDE RECORDS SUMMARY | 2024-09-20 00:21 | XMS_ITS | Clinical Summary ---
Author Organization [facility] Address [address] [place] [address] Care Team Providers Care Aircraft Delivery Checker Name Role Phone Aron Tinsley Primary Care Provider [phone] Allergies No known active allergies Medications No known medications Active Problems No known active problems Encounters Date Type Department Care Team Description 09/15/2024 7:00 AM STEEP TENDER Therapy [facility] Physical Therapy [facility] [place] [address] Dipak Mitchell, PT Right knee pain, unspecified chronicity (Primary Dx); Pain in right foot 09/15/2024 Plan of Care Documentation [facility] [place] [address] 09/13/2024 7:45 AM STEEP TENDER Therapy [facility] [place] [address] Dipak Mitchell, PT Right knee pain, unspecified chronicity (Primary Dx); Pain in right foot 09/10/2024 7:45 AM STEEP TENDER Therapy [facility] Physical Therapy [facility] [place] [address] Dipak Mitchell, PT Right knee pain, unspecified chronicity (Primary Dx); Pain in right foot 09/08/2024 7:00 AM STEEP TENDER Therapy [facility] Physical Therapy [facility] [place] [address] Dipak Mitchell, PT Right knee pain, unspecified chronicity (Primary Dx); Pain in right foot 09/03/2024 7:00 AM STEEP TENDER Therapy [facility] Physical Therapy [facility] [place] [address] Kiana Brandon, WORKFORCE MANAGEMENT CONSULTANT Right knee pain, unspecified chronicity (Primary Dx); Pain in right foot 09/01/2024 7:45 AM STEEP TENDER Therapy [facility] Physical Therapy [facility] [place] [address] Kiana Brandon, WORKFORCE MANAGEMENT CONSULTANT Right knee pain, unspecified chronicity (Primary Dx); Pain in right foot 08/27/2024 5:00 PM STEEP TENDER Therapy [facility] [place] [address] Dipak Mitchell, PT Right knee pain, unspecified chronicity (Primary Dx); Pain in right foot 08/19/2024 7:00 AM STEEP TENDER Therapy [facility] [place] [address] Dipak Mitchell, PT Right knee pain, unspecified chronicity 08/19/2024 Plan of Care Documentation [facility] Physical [facility] [place] [address] from Last 3 Months Social History Tobacco Use Types Packs/Day Years Used Date Smoking Tobacco: Never Assessed Sex and Gender Information Value Date Recorded Sex Assigned at Not on file Legal Sex Male 11:48 AM STEEP TENDER Gender Identity Not on file Sexual Orientation Not on file Plan of Treatment Health Maintenance Due Date Last Done Comments Colon Cancer Screening-Colonoscopy 1961 Depression Screening 1961 Hepatitis C Screening 1961 Prostate Cancer Screening-PSA 1961 DTaP/Tdap/Td Vaccine (1 - Tdap) 1972 Hepatitis B Screening 1979 Regular Well Visit/Exam 18-64 1979 Zoster Vaccine (1 of 2) 2011 Influenza Vaccine (#1) 2024 Pneumococcal vaccine <65 Aged Out No longer eligible based on patient's age to complete this topic Insurance IDPA [facility] Care Teams Aircraft Delivery Checker Relationship Specialty Start Date End Date Aron Tinsley PA [address] [place] [address] PCP - General Family Practice 12/31/23
--- NOTE | 2024-09-20 05:09 | ECG_ITS ---
Test Date: 2024-09-20 05:33:04 Measurements Intervals [place] Rate: 48 P: 22 GA: 161 QRS: 69 QRSD: 92 T: 143 QT: 444 QTc: 399 Interpretive Statements SINUS BRADYCARDIA MARKED T-WAVE ABNORMALITY, CONSIDER ANTEROLATERAL ISCHEMIA [-0.5+ mV T WAVE IN I/aVL/V3-V6] MODERATE T-WAVE ABNORMALITY, CONSIDER INFERIOR ISCHEMIA [-0.1+ mV T WAVE IN II/aVF] No previous ECG available for comparison Electronically Signed On 09-20-2024 21:20:02 LAW EXAMINER by Yvon Szymanski M.D.
--- NOTE | 2024-09-20 05:16 | ED_ITS ---
HPI - Abdominal Pain General Chief Complaint: Abdominal Pain Stated Complaint: Abd pain, Right sided Time Seen by Provider: 09/20/24 04:49 History of Present Illness HPI narrative: 64-year-old male presenting to the emergency room with a chief complaint of epigastric and right upper quadrant abdominal pain is intermittent in nature for last month. Associated with meals, slowly resolved without eating and with rest. Denies any fever, chills, diarrhea, constipation, urinary complaints. Denies any history of abdominal surgeries. Had an ultrasound of his right upper quadrant and gallbladder approximately 1 month prior which was unremarkable according to himself. Patient states the pain got severe this afternoon which prompted him to seek evaluation. He had nausea and vomiting in triage were present he states his pain has subsided as well as nausea. He is currently asymptomatic during my initial assessment. Related Data Allergies Allergy/AdvReac Type Severity Reaction Status Date / Time NO KNOWN DRUG ALLERGIES Allergy Y Uncoded 03/04/24 07:27 (Class Allergy) Review of Systems 2 Review of Systems: As [facility] Past Medical History Medical History Rotator cuff injury Family History Family History Father Mother Sibling Sibling Heart disease Social History Social History Smoking status: Never smoker Second hand tobacco smoke exposure: Yes Alcohol intake: former Substance use: current Substance use type: marijuana Do You Feel Safe in your Home?: Yes Lack of Transportation: No Lack of Food: Never True Current Housing: I Have Housing Concerned About Future Housing: No Difficulty Paying Gas/Electric Bills: No Difficulty Paying for Meds: No Currently Unemployed: No Education: High School Diploma/GED Difficulty w/ Childcare or Family Care: No Living arrangements: with family Occupation/Education: retired Additional occupation/education comments: [email or web address] Gender identity (if verbalized by the patient): Male Exam 2 Narrative: GENERAL: [Well-appearing, well-nourished, and in no acute distress.] HEAD: [Normocephalic, atraumatic.] EYES: [PERRLA and EOMI.] ENT: Nares clear, no rhinorrhea or epistaxis. Mucous membranes moist. NECK: Supple. CHEST: [Clear to auscultation. No respiratory distress.] HEART: [Regular rate and rhythm]. No murmur heard. [Normal peripheral pulses.] ABDOMEN: Protuberant but soft, mildly tender to palpation in the epigastrium and right upper quadrant, negative Hays sign, [No rigidity or guarding] EXTREMITIES: Normal range of motion. [No edema.] SKIN: Warm, dry, no rash. NEURO: [No focal deficits]. Alert and oriented [x3.] PSYCH: [Normal mood and affect.] Course Vital Signs Vital signs: Vital Signs Temperature 36.8 C 09/20/24 00:24 Pulse Rate 50 L 09/20/24 00:24 Respiratory Rate 20 09/20/24 00:24 Blood Pressure 195/95 H 09/20/24 00:24 Pulse Oximetry 94 09/20/24 00:24 Oxygen Delivery Room Air 09/20/24 00:24 Temperature 36.8 C 09/20/24 00:24 Pulse Rate 48 L 09/20/24 07:57 Respiratory Rate 14 09/20/24 07:57 Blood Pressure 135/74 09/20/24 07:57 Pulse Oximetry 97 09/20/24 07:57 Oxygen Delivery Room Air 09/20/24 00:24 MDM - Abdominal Pain MDM Narrative Medical decision making narrative: 64-year-old otherwise well-appearing male presenting to the emergency depart with vague epigastric and right upper quadrant complaints associated with food, nauseousness and intermittent sharp pain that resolved without intervention. Symptoms sound concerning for potential gallbladder disease, cholelithiasis, cholecystitis. He did have unremarkable ultrasound of his gallbladder recently in the EMR. He is otherwise well-appearing not any acute distress. His triage vital signs do show some elevated blood pressure 195/95 but this came down without intervention 155/79. He is bradycardic on the monitor with pulse rate about 50 but presently asymptomatic. No fever, hypoxia or tachypnea. Suspicion presently for abdominal process such as gallbladder disease but given his elevated blood pressure readings and epigastric pain expanded workup to include cardiac workup such as troponin, EKG, chest x-ray in addition to right upper quadrant labs, LFTs, lipase. CT scan with contrast was obtained to evaluate further. Presently is not having pain or nausea. EKG was obtained which shows concerning potentially ischemic findings with diffuse broad T-wave inversions in the lateral leads V4 through V6 and biphasic T-waves in V2 and V3. This pattern resembles potential Wellens criteria. I spoke to the shift commander on-call Dr. Sutton and relayed the EKG findings to them, she stated patient would benefit from being evaluated by Cardiology inpatient after his workup completed. Heart score calculated at 4. No leukocytosis or anemia. Normal platelet count. Electrolytes show some minor hyperkalemia 5.1 but otherwise no significant derangements, normal renal and hepatic function panel. Negative troponin. Urinalysis without signs of infection. CT scan without acute process. Chest x-ray shows no acute process. 3 hour troponin EKG obtained, EKG without any acute changes. Spoke to the hospitalist Dr. Rothman and relayed my concerns with the EKG findings of possible ischemia and healthcare sales representative recs for evaluation and he was accepting the patient to the intermediate care unit floor for evaluation at this time under observation. Family was made aware of this and agreeable to the plan of care. Medical Records Attestation: I reviewed the patient's medical records. Lab Data Attestation: I reviewed the patient's lab results. 09/20/24 05:28 09/20/24 05:28 Labs: Lab Results 09/20/24 Range/Units 05:28 WBC 10.0 (4.5-10.0) K/mm3 RBC 5.00 (4.6-6.20) M/mm3 Hgb 14.8 (14.0-18.0) g/dL Hct 45.2 (42.0-52.0) % MCV 90.4 (80-100) fl MCH 29.6 (26-34) pg MCHC 32.7 (32-36) g/dl RDW 12.2 (11.5-14.5) % Plt Count 201 (150-375) k/mm3 MPV 10.8 H (7.4-10.4) fl Immature Gran % (Auto) 0.3 (0-0.5) % Neut % (Auto) 78.6 H (45.5-73.1) % Lymph % (Auto) 16.3 L (18.3-44.2) % Jones % (Auto) 4.3 (2.6-8.5) % Eos % (Auto) 0.1 (0-4.4) % Baso % (Auto) 0.4 (0.2-1.2) % Lymph # (Auto) 1.62 (0.9-3.2) K/mm3 Jones # (Auto) 0.4 (0.1-0.6) K/mm3 Eos # (Auto) 0.0 (0-0.3) K/mm3 Baso # (Auto) 0.0 (0.0-0.1) K/mm3 Abs Immat Gran (auto) 0.03 (0.00-0.031) K/mm3 Absolute Neuts (auto) 7.8 H (1.3-6.7) K/mm3 Absolute Nucleated RBC 0.000 (0.0-0.012) K/mm3 Nucleated RBC % 0.0 (0.0-0.2) % Sodium 135 L (137-145) mmol/L Potassium 5.1 H (3.4-5.0) mmol/L Chloride 101 (98-107) mmol/L Carbon Dioxide 26 (22-30) mmol/L Anion Gap 8 (4-12) mmol/L BUN 24 H (9-20) mg/dL Creatinine 0.78 (0.7-1.3) mg/dL Estim Creat Clear Calc 103 ml/min Estimated GFR > 60 (59 - ) Glucose 165 H (65-110) mg/dL Calcium 9.2 (8.4-10.2) mg/dL Total Bilirubin 0.7 (0.2-1.3) mg/dL AST 37 (17-59) U/L ALT 56 H (6-50) U/L Alkaline Phosphatase 85 (38-126) U/L Troponin I < 0.012 (0.000-0.034) ng/mL Total Protein 7.0 (6.3-8.2) g/dL Albumin 4.2 (3.5-5.1) g/dL Lipase 62 (23-300) U/L Urine Color Yellow (Yellow) Urine Appearance Clear (Clear) Urine pH 6.5 (5.0-9.0) Ur Specific Acra 1.019 (1.001-1.035) Urine Protein 1+ H (Negative) mg/dL Urine Glucose (UA) Negative (Negative) mg/dL Urine Ketones Negative (Negative) mg/dL Ur Blood (Man) Negative (Negative) Urine Nitrate Negative (Negative) Urine Bilirubin Negative (Negative) Urine Urobilinogen 0.2 (<2.0) mg/dL Leukocyte Esterase Rfl Negative (Negative) GUILLERMINA/UL Urine RBC 0-2 (0-2) /hpf Urine WBC 0-5 (0-3) /hpf Ur Squamous Epith Cells None seen (Few) /hpf Urine Bacteria None seen /hpf Urine Casts 0-2 Imaging Data Attestation: I personally reviewed and interpreted this imaging study as follows: Radiologist's impression: ITS Impressions Abdomen/Pelvis CT 09/20/24 06:30 Impression: No acute abnormalities seen. Diffuse hepatic steatosis. Small fat-containing umbilical hernia. Chest X-Ray 09/20/24 06:32 Impression: Clear lungs. Discharge Plan Discharge Clinical Impression: Epigastric pain, T wave inversion in EKG, Abnormal ECG Patient Disposition: Still a Patient Condition: Stable Time of Disposition: 08:31 Quality HEART score for chest pain patients History: slightly suspicious ECG: significant ST depression Age: > 45 and < 65 years Risk factors: 1 or 2 risk factors Troponin: < or = to 1x normal limit Heart score: 4
[2024-09-20 05:42] LABS: Basophils Percent Auto 0.4 % (0.2-1.2); Eosinophils Percent Auto 0.1 % (0-4.4); Hematocrit 45.2 % (42.0-52.0); Hemoglobin 14.8 g/dL (14.0-18.0); Immature Granulocyte Absolute 0.03 K/mm3 (0.00-0.031); Immature Granulocyte Percent A 0.3 % (0-0.5); Lymphocytes Absolute Auto 1.62 K/mm3 (0.9-3.2); Lymphocytes Percent Auto 16.3 % (18.3-44.2); Mean Corpuscular HGB Conc 32.7 g/dl (32-36); Mean Corpuscular Hemoglobin 29.6 pg (26-34); Mean Corpuscular Volume 90.4 fl (80-100); Mean Platelet Volume 10.8 fl (7.4-10.4); Monocytes Absolute Auto 0.4 K/mm3 (0.1-0.6); Monocytes Percent Auto 4.3 % (2.6-8.5); Neutrophils Absolute Auto 7.8 K/mm3 (1.3-6.7); Neutrophils Percent Auto 78.6 % (45.5-73.1); Platelet Count Result 201 k/mm3 (150-375); Red Cell Distribution Width 12.2 % (11.5-14.5)
[2024-09-20 05:48] LABS: Add Urine Microscopic? YES; Appearance Urine Clear (Clear); Bacteria Urine None Seen /hpf; Bilirubin Urine Negative (Negative); Blood Urine Negative (Negative); Color Urine Yellow (Yellow); Glucose Urine UA Negative (Negative); Ketones Urine Negative (Negative); Leukocyte Esterase Ur Negative LEU/UL (Negative); Nitrate Urine Negative (Negative); Non Pathogenic Casts 0-2; Protein Urine 1+ mg/dL (Negative); RBC Urine 0-2 /hpf (0-2); Specific Grav Ur 1.019 (1.001-1.035); Squamous Epithelial Cell Urine None Seen /hpf (Few); Urobilinogen Urine 0.2 mg/dL (<2.0); WBC Urine 0-5 /hpf (0-3); pH Urine 6.5 (5.0-9.0)
[2024-09-20 05:51] LABS: Alanine Aminotransferase 56 U/L (6-50); Albumin Level 4.2 g/dL (3.5-5.1); Alkaline Phosphatase 85 U/L (38-126); Anion Gap 8 mmol/L (4-12); Aspartate Amino Transferase 37 U/L (17-59); Bilirubin,Total 0.7 mg/dL (0.2-1.3); Blood Urea Nitrogen 24 mg/dL (9-20); Calcium 9.2 mg/dL (8.4-10.2); Carbon Dioxide 26 mmol/L (22-30); Chloride 101 mmol/L (98-107); Estimated CRCL calculation 103 ml/min; Estimated Glomerular Filt Rate > 60; Glucose 165 mg/dL (65-110); Lipase 62 U/L (23-300); Potassium 5.1 mmol/L (3.4-5.0); Sodium 135 mmol/L (137-145)
[2024-09-20 06:03] LABS: Troponin I < 0.012 ng/mL (0.000-0.034)
--- OUTSIDE RECORDS SUMMARY | 2024-09-20 06:16 | XMS_ITS | Clinical Summary ---
Author Organization [facility] Address [address] [place] [address] Phone Care Team Providers Care Prefabricator Name Role Phone Provider, None Primary Care [...] on file Legal Sex Male 11:26 AM DECISION UNIT RN Gender Identity Not on file Sexual Orientation Not on file Last Filed Vital Signs Vital Sign Reading Time Taken Comments Blood Pressure 110/70 09/01/2019 3:01 PM DECISION UNIT RN Pulse 59 09/01/2019 3:01 PM DECISION UNIT RN Temperature 36.5 ??C (97.7 ??F) 09/01/2019 3:01 PM CS T Respiratory Rate 14 09/01/2019 3:01 PM DECISION UNIT RN Oxygen Saturation 97% 09/01/2019 3:01 PM DECISION UNIT RN Inhaled Oxygen Concentration - - Weight 101.6 kg (224 lb) 09/01/2019 3:01 PM DECISION UNIT RN Height 172.7 cm (5' 8 ) 09/01/2019 3:01 PM DECISION UNIT RN Body Mass Index 34.06 09/01/2019 3:01 PM DECISION UNIT RN Plan of Treatment Health Maintenance Due Date [...] age to complete this topic Care Teams Prefabricator Relationship Specialty Start Date End Date Provider, None [place] PCP - General 09/01/19
--- OUTSIDE RECORDS SUMMARY | 2024-09-20 06:16 | XMS_ITS | Clinical Summary ---
Author Organization [facility] Address [address] [place] [address] Care Team Providers Care Pig Caster Name Role Phone Aron Tinsley Primary Care Provider [phone] Allergies No known active allergies Medications No known medications Active Problems No known active problems Encounters Date Type Department Care Team Description 09/15/2024 7:00 AM UPHOLSTERER OUTSIDE Therapy [facility] Physical Therapy [facility] [place] [address] Dipak Mitchell, PT Right knee pain, unspecified chronicity (Primary Dx); Pain in right foot 09/15/2024 Plan of Care Documentation [facility] [place] [address] 09/13/2024 7:45 AM UPHOLSTERER OUTSIDE Therapy [facility] [place] [address] Dipak Mitchell, PT Right knee pain, unspecified chronicity (Primary Dx); Pain in right foot 09/10/2024 7:45 AM UPHOLSTERER OUTSIDE Therapy [facility] Physical Therapy [facility] [place] [address] Dipak Mitchell, PT Right knee pain, unspecified chronicity (Primary Dx); Pain in right foot 09/08/2024 7:00 AM UPHOLSTERER OUTSIDE Therapy [facility] Physical Therapy [facility] [place] [address] Dipak Mitchell, PT Right knee pain, unspecified chronicity (Primary Dx); Pain in right foot 09/03/2024 7:00 AM UPHOLSTERER OUTSIDE Therapy [facility] Physical Therapy [facility] [place] [address] Kiana Brandon, PRODUCT MANAGEMENT SPECIALIST Right knee pain, unspecified chronicity (Primary Dx); Pain in right foot 09/01/2024 7:45 AM UPHOLSTERER OUTSIDE Therapy [facility] Physical Therapy [facility] [place] [address] Kiana Brandon, PRODUCT MANAGEMENT SPECIALIST Right knee pain, unspecified chronicity (Primary Dx); Pain in right foot 08/27/2024 5:00 PM UPHOLSTERER OUTSIDE Therapy [facility] [place] [address] Dipak Mitchell, PT Right knee pain, unspecified chronicity (Primary Dx); Pain in right foot 08/19/2024 7:00 AM UPHOLSTERER OUTSIDE Therapy [facility] [place] [address] Dipak Mitchell, PT Right knee pain, unspecified chronicity 08/19/2024 Plan of Care Documentation [facility] Physical [facility] [place] [id number] from Last 3 Months Social History Tobacco Use Types Packs/Day Years Used Date Smoking Tobacco: Never Assessed Sex and Gender Information Value Date Recorded Sex Assigned at Not on file Legal Sex Male 11:48 AM UPHOLSTERER OUTSIDE Gender Identity Not on file Sexual Orientation [...] age to complete this topic Insurance IDPA [facility] Care Teams Pig Caster Relationship Specialty Start Date End Date Aron Tinsley PA [address] [place] [address] PCP - General Family Practice 12/31/23
--- OUTSIDE RECORDS SUMMARY | 2024-09-20 06:16 | XMS_ITS | Referral Summary ---
Author Organization [facility] Address [address] [place] [address] Care Team Providers Care Adzing And Boring Machine Helper Name Role Phone Aron Tinsley Primary Care Provider [phone] Encounters Date Type Department Care Team Description 09/15/2024 Plan of Care Documentation [facility] Physical [facility] [place] [address] 09/15/2024 7:00 AM INTERNET MARKETING COORDINATOR Therapy [facility] Physical [facility] [place] [address] Dipak Mitchell, PT Right knee pain, unspecified chronicity (Primary Dx); Pain in right foot 09/13/2024 7:45 AM INTERNET MARKETING COORDINATOR [facility] [address] Dipak Mitchell, PT Right knee pain, unspecified chronicity (Primary Dx); Pain in right foot 09/10/2024 7:45 AM INTERNET MARKETING COORDINATOR [facility] [place] [address] Dipak Mitchell, PT Right knee pain, unspecified chronicity (Primary Dx); Pain in right foot 09/08/2024 7:00 AM INTERNET MARKETING COORDINATOR Therapy [facility] [place] [address] Dipak Mitchell, PT Right knee pain, unspecified chronicity (Primary Dx); Pain in right foot 09/03/2024 7:00 AM INTERNET MARKETING COORDINATOR Therapy [facility] [place] [address] Kiana Brandon, BONDING MOLDER Right knee pain, unspecified chronicity (Primary Dx); Pain in right foot 09/01/2024 7:45 AM INTERNET MARKETING COORDINATOR Therapy [facility] Physical Therapy [facility] [place] [address] Kiana Brandon, BONDING MOLDER Right knee pain, unspecified chronicity (Primary Dx); Pain in right foot 08/27/2024 5:00 PM INTERNET MARKETING COORDINATOR Therapy [facility] Physical Therapy [facility] [place] [address] Dipak Mitchell, PT Right knee pain, unspecified chronicity (Primary Dx); Pain in right foot 08/19/2024 Plan of Care Documentation [facility] Physical [facility] [place] [address] 08/19/2024 7:00 AM INTERNET MARKETING COORDINATOR Therapy [facility] Physical [facility] [place] [address] Dipak Mitchell, PT Right knee pain, unspecified chronicity from Last 3 Months Allergies No known active allergies Medications No known medications Active Problems No known active problems Social History Tobacco Use Types Packs/Day Years Used Date Smoking Tobacco: Never Assessed Sex and Gender Information Value Date Recorded Sex Assigned at Not on file Legal Sex Male 11:48 AM INTERNET MARKETING COORDINATOR Gender Identity Not on file Sexual Orientation Not on file Plan of Treatment Not on file Insurance IDPA [facility] Care Teams Adzing And Boring Machine Helper Relationship Specialty Start Date End Date Aron Tinsley PA [address] [place] [address] PCP - General Family Practice 12/31/23
--- NOTE | 2024-09-20 08:30 | ECG_ITS ---
Test Date: 2024-09-20 07:17:30 Measurements Intervals [place] Rate: 50 P: 14 [place]: 160 QRS: 66 QRSD: 98 T: 161 QT: 453 QTc: 415 Interpretive Statements SINUS BRADYCARDIA POSSIBLE RIGHT VENTRICULAR CONDUCTION DELAY [RSR (QR) IN V1/V2] MARKED T-WAVE ABNORMALITY, CONSIDER ANTEROLATERAL ISCHEMIA [-0.5+ mV T WAVE IN I/aVL/V3-V6] MODERATE T-WAVE ABNORMALITY, CONSIDER INFERIOR ISCHEMIA [-0.1+ mV T WAVE IN II/aVF] Compared to ECG 09/20/2024 05:33:04 No significant changes Electronically Signed On 09-20-2024 21:19:49 CANDY SPREADER HELPER by Yvon Szymanski M.D.
[2024-09-20 09:46] LABS: Troponin I < 0.012 ng/mL (0.000-0.034)
--- NOTE | 2024-09-20 09:57 | P.HP_ITS ---
H&P: HPI History of Present Illness Date/Time: 09/20/24 09:57 Chief Complaint: Right upper quadrant pain Narrative: 64-year-old male presenting to the emergency room with a chief complaint of epigastric and right upper quadrant abdominal pain is intermittent in nature for last month. Associated with meals, slowly resolved without eating and with rest. Denies any fever, chills, diarrhea, constipation, urinary complaints. Denies any history of abdominal surgeries. Had an ultrasound of his right upper quadrant and gallbladder approximately 1 month prior which showed hepatic steatosis with hepatomegaly. Patient states the pain got severe this afternoon which prompted him to seek evaluation. He had nausea and vomiting in triage were present he states his pain has subsided as well as nausea. He is currently asymptomatic during my initial assessment. On ED evaluation he was hypertensive and mildly bradycardic. Laboratory workup revealed normal WBC at 10 hemoglobin of 14.8 Chem panel was unremarkable. Blood sugar was 165. Troponin came back negative with less than 0.012. Urinalysis negative for infection. CT abdomen pelvis was done which showed no acute abnormality diffuse hepatic steatosis and small fat containing umbilical hernia. Chest x-ray showed clear lungs. EKG done in the ER revealed diffuse broad T- wave inversion in the lateral leads V4 to V6 and 1 and aVL. Repeat EKGs has b een similar with no dynamic changes. With abnormal EKGs is admitted for further treatment with cardiology consultation Review of Systems Review of Systems: - CONSTITUTIONAL: Denies weight loss, fe fadumo and chills. - HEENT: Denies changes in vision and he aring - RESPIRATORY: Denies SOB and cough. - CV: Denies palpitations and CP. - GI: Reports abdominal pain, nausea, v omiting and denies diarrhea. - : Denies dysuria and urinary frequen cy. - MSK: Denies myalgia and joint pain. - SKIN: Denies rash and pruritus. - NEUROLOGICAL: Denies headache and sync ope. - PSYCHIATRIC: Denies recent changes in mood. Denies anxiety and depression. [facility] Past Medical History Medical History Rotator cuff injury Family History Family History Father Mother Sibling Sibling Heart disease Social History Social History Smoking status: Never smoker Second hand tobacco smoke exposure: Yes Alcohol intake: former Substance use: current Substance use type: marijuana Do You Feel Safe in your Home?: Yes Lack of Transportation: No Lack of Food: Never True Current Housing: I Have Housing Concerned About Future Housing: No Difficulty Paying Gas/Electric Bills: No Difficulty Paying for Meds: No Currently Unemployed: No Education: High School Diploma/GED Difficulty w/ Childcare or Family Care: No Living arrangements: with family Occupation/Education: retired Additional occupation/education comments: jha Gender identity (if verbalized by the patient): Male Meds Home Medications and Allergies Home Medications ?Medication ?Instructions ?Recorded ?Confirmed ?Type diclofenac sodium 75 mg 75 mg PO BID #60 tabs 03/04/24 03/04/24 Rx tablet,delayed release Allergies Allergy/AdvReac Type Severity Reaction Status Date / Time NO KNOWN DRUG ALLERGIES Allergy Y Uncoded 03/04/24 07:27 (Class Allergy) Vital Signs Vital Signs - 24 hr 09/20/24 00:24 09/20/24 04:42 09/20/24 05:00 Temperature 98.2 F Pulse Rate 50 L 48 L 52 L Respiratory Rate 20 19 24 H Blood Pressure 195/95 H 155/79 H Pulse Oximetry 94 95 96 Oxygen Delivery Room Air 09/20/24 05:02 09/20/24 05:15 09/20/24 05:30 Temperature Pulse Rate 51 L 49 L Respiratory Rate 27 H 22 H Blood Pressure 136/82 Pulse Oximetry 97 96 97 Oxygen Delivery 09/20/24 05:45 09/20/24 07:57 09/20/24 09:19 Temperature Pulse Rate 52 L 48 L 56 L Respiratory Rate 28 H 14 17 Blood Pressure 135/74 Pulse Oximetry 97 97 97 Oxygen Delivery Exam Narrative: GENERAL: [Well-appearing, well-nourished, and in no acute distress.] HEAD: [Normocephalic, atraumatic.] EYES: [PERRLA and EOMI.] ENT: Nares clear, no rhinorrhea or epistaxis. Mucous membranes moist. NECK: Supple. CHEST: [Clear to auscultation. No respiratory distress.] HEART: [Regular rate and rhythm]. No murmur heard. [Normal peripheral pulses.] ABDOMEN: Protuberant but soft, mildly tender to palpation in the epigastrium and right upper quadrant, negative Hays sign, [No rigidity or guarding] EXTREMITIES: Normal range of motion. [No edema.] SKIN: Warm, dry, no rash. NEURO: [No focal deficits]. Alert and oriented [x3.] PSYCH: [Normal mood and affect.] H&P: Results Labs Labs: Short CBC 09/20/24 Range/Units 05:28 WBC 10.0 (4.5-10.0) K/mm3 Hgb 14.8 (14.0-18.0) g/dL Hct 45.2 (42.0-52.0) % Plt Count 201 (150-375) k/mm3 BMP 09/20/24 05:28 Sodium 135 L Potassium 5.1 H Chloride 101 Carbon Dioxide 26 BUN 24 H Creatinine 0.78 Glucose 165 H Calcium 9.2 Cardiac Enzymes 09/20/24 09/20/24 Range/Units 05:28 09:14 Troponin I < 0.012 < 0.012 (0.000-0.034) ng/mL Liver Function 09/20/24 Range/Units 05:28 Total Bilirubin 0.7 (0.2-1.3) mg/dL AST 37 (17-59) U/L ALT 56 H (6-50) U/L Alkaline Phosphatase 85 (38-126) U/L Albumin 4.2 (3.5-5.1) g/dL Urine 09/20/24 Range/Units 05:28 Urine Color Yellow (Yellow) Urine Appearance Clear (Clear) Urine pH 6.5 (5.0-9.0) Ur Specific [place] 1.019 (1.001-1.035) Urine Protein 1+ H (Negative) mg/dL Urine Glucose (UA) Negative (Negative) mg/dL Assessment and Plan Assessment and plan (1) Abnormal ECG: Code(s): R94.31 - Abnormal electrocardiogram [ECG] [EKG] Status: Acute (2) Epigastric pain: Code(s): R10.13 - Epigastric pain Status: Acute (3) Obstructive sleep apnea: Code(s): G47.33 - Obstructive sleep apnea (adult) (pediatric) Status: Acute (4) Hypertension: Code(s): I10 - Essential (primary) hypertension Status: Acute Plan 64-year-old male presenting to the emergency room with a chief complaint of epigastric and right upper quadrant abdominal pain is intermittent in nature for last month. Associated with meals, slowly resolved without eating and with rest. Denies any fever, chills, diarrhea, constipation, urinary complaints. Denies any history of abdominal surgeries. Had an ultrasound of his right upper quadrant and gallbladder approximately 1 month prior which showed hepatic steatosis with hepatomegaly. Patient states the pain got severe this afternoon which prompted him to seek evaluation. He had nausea and vomiting in triage were present he states his pain has subsided as well as nausea. He is currently asymptomatic during my initial assessment. On ED evaluation he was hypertensive and mildly bradycardic. Laboratory workup revealed normal WBC at 10 hemoglobin of 14.8 Chem panel was unremarkable. Blood sugar was 165. Troponin came back negative with less than 0.012. Urinalysis negative for infection. CT abdomen pelvis was done which showed no acute abnormality diffuse hepatic steatosis and small fat containing umbilical hernia. Chest x-ray showed clear lungs. EKG done in the ER revealed diffuse broad T-w ave inversion in the lateral leads V4 to V6 and 1 and aVL. Repeat EKGs has been similar with no dynamic changes. With abnormal EKGs is admitted for further treatment with cardiology consultation. He has significant history of premature coronary artery disease in family Will get an echocardiogram. Further cardiac testing per cardiology He does have obstructive sleep apnea currently undergoing evaluation with sleep study. Recent home sleep study showed extremely severe obstructive sleep apnea with AHI of 81.9. He is getting started with CPAP soon as an outpatient DVT prophylaxis SCDs code status full code Hospitalist [facility] Advance Care Plan I have confirmed that the patient's Advanced Care Plan is present, code status is documented, or surrogate decision maker is listed in patient medical record.: Yes Medication Reconciliation I have utilized all available resources to obtain, update and review the patients current medications (includes all prescriptions, OTC, herbals, cannabis, and nutritional supplements).: Yes
--- NOTE | 2024-09-20 11:30 | ECG_ITS ---
Test Date: 2024-09-20 09:07:31 Measurements Intervals [place] Rate: 48 P: 24 [place]: 155 QRS: 64 QRSD: 98 T: 175 QT: 459 QTc: 412 Interpretive Statements SINUS BRADYCARDIA POSSIBLE RIGHT VENTRICULAR CONDUCTION DELAY [RSR (QR) IN V1/V2] MARKED T-WAVE ABNORMALITY, CONSIDER ANTEROLATERAL ISCHEMIA [-0.5+ mV T-WAVE IN I/aVL/V3-V6] MODERATE T-WAVE ABNORMALITY, CONSIDER INFERIOR ISCHEMIA [-0.1+ mV T-WAVE IN II/aVF] Compared to ECG 09/20/2024 07:17:30 No significant changes Electronically Signed On 09-20-2024 21:18:01 FOOD COUNSELOR by Yvon Szymanski M.D.
[2024-09-20 11:45] LABS: Troponin I < 0.012 ng/mL (0.000-0.034)
--- NOTE | 2024-09-20 12:01 | ADMGEN ---
This patient, Joe Chávez, was admitted to IMU Room 201-01. Patient/family oriented to hospital policies and general routines including ID bracelet, bed and alarms, visiting hours, pain management, procedures, bathroom and other care routines, personal items, smoking policy, room service/diet, and visiting hours. Information on how to activate the Rapid Response Team has been discussed. Patient/Family are encouraged to report perceived risks to care and to ask questions if they do not understand what they are told or what they should do.
--- NOTE | 2024-09-20 12:21 | P.CONCA_ITS ---
Assessment and Plan Assessment and plan (1) Hypertension: Code(s): I10 - Essential (primary) hypertension Status: Acute (2) Sleep apnea: Code(s): G47.30 - Sleep apnea, unspecified Status: Acute (3) Abnormal ECG: Code(s): R94.31 - Abnormal electrocardiogram [ECG] [EKG] Status: Acute Plan -regards to abnormal EKG, strong family history of CAD. He comes in with right upper quadrant pain radiating to the upper back which is exacerbated by eating. However given abnormal EKG and family history of CAD will recommend Lexiscan stress test to further assess and rule out ischemia. Recommend an echocardiogram to assess cardiac structure and function and rule out LVH as possible etiology for the abnormal EKG. -regards to untreated hypertension, blood pressure is elevated. Patient is known to have hypertension but does not take medications. Recommend to start losartan 25 mg daily. -in regards to sleep apnea, stated that he had recently sleep study that was abnormal. Awaiting CPAP. -regards to morbid obesity courage patient for weight loss and to seek weight loss medications. Advised diet changes. -regards to right upper quadrant pain could be related to hepatic steatosis. Elevated ALT. Encourage weight loss. History of Present Illness History of Present Illness Consult date/time: Date of service: 09/20/24 12:21 Requesting physician: Dameon Kunz MD Consult reason: Other (Abnormal EKG) Reason For Visit: Chest pain obs, ischemic EKG changes Narrative: This 64-year-old patient with no significant history who presents to the hospital right upper quadrant pain radiating to the back of the right side. He stated that the he had the symptoms for a while now. His PCP did ultrasound recently that showed hepatic fatty liver. History that the right upper quadrant pain is triggered by eating. Yesterday he had Burgers s and the pain was intense associated with nausea. Pain continues until he goes to sleep and then he wakes up next day with no pain. He cannot pinpoint a specific food that triggers the pain. Pain has no relation to exertion. Denies shortness of breath. Denies chest pain, palpitations dizziness or syncope, lower extremity edema. He states that he has hypertension but does not get any medications for it. He was recently tested for sleep apnea but awaiting CPAP. His sister and multiple members of family at young age with myocardial infarction. He is scheduled to travel to [facility] this coming Friday. His blood pressure is elevated. His EKG reviewed and is massive shows sinus bradycardia, T inversion anterolateral and inferior leads. CT scan abdomen and pelvis hepatic steatosis. Ultrasound of the liver shows hepatic steatosis. Negative troponins x2, creatinine 0.78. Review of Systems 2 Review of Systems: All systems reviewed & are unremarkable except as noted in HPI and below Constitutional: Constitutional: Denies body ache(s) and Denies chills Eyes: Eyes: Denies blurry vision ENT: Denies dysphagia Cardiovascular: Cardiovascular: Denies chest pain, Denies pedal edema and Denies lightheadedness Respiratory: Respiratory: Denies chest congestion and Denies wheezing Gastrointestinal: Gastrointestinal: Reports abdominal pain, Reports nausea and Reports vomiting Genitourinary: Genitourinary: Denies urinary urgency Musculoskeletal: Musculoskeletal: Denies back pain Integumentary/Breasts: Skin/Breast: Denies pruritus Neurologic: Denies Abnormal speech present Psychiatric: Psychiatric: Denies confusion Endocrine: Endocrine: Denies excessive sweating Hematologic/Lymphatic: Hematologic/Lymphatic: Denies easy bruising Allergic/Immunologic: Allergic/Immunologic: Reports GI upset with certain foods PMFSH Past Medical History Medical History (Updated 09/20/24 @ 13:07 by Yvon Szymanski MD) Hypertension Sleep apnea Rotator cuff injury Family History Family History Father Heart attack Mother Sibling Sibling Heart disease Social History Social History Smoking status: Never smoker Second hand tobacco smoke exposure: Yes Alcohol intake: former Substance use: current Substance use type: marijuana Do You Feel Safe in your Home?: Yes Lack of Transportation: No Lack of Food: Never True Current Housing: I Have Housing Concerned About Future Housing: No Difficulty Paying Gas/Electric Bills: No Difficulty Paying for Meds: No Currently Unemployed: No Education: High School Diploma/GED Difficulty w/ Childcare or Family Care: No Living arrangements: with family Occupation/Education: retired Additional occupation/education comments: jha Gender identity (if verbalized by the patient): Male Meds Home Medications and Allergies Home Medications ?Medication ?Instructions ?Recorded ?Confirmed ?Type diclofenac sodium 75 mg 75 mg PO BID #60 tabs 03/04/24 09/20/24 Rx tablet,delayed release Allergies Allergy/AdvReac Type Severity Reaction Status Date / Time NO KNOWN DRUG ALLERGIES Allergy Y Uncoded 09/20/24 12:20 (Class Allergy) Vital Signs Vital Signs - 24 hr 09/20/24 00:24 09/20/24 04:42 09/20/24 05:00 Temperature 36.8 C Pulse Rate 50 L 48 L 52 L Respiratory Rate 20 19 24 H Blood Pressure 195/95 H 155/79 H Pulse Oximetry 94 95 96 Oxygen Delivery Room Air 09/20/24 05:02 09/20/24 05:15 09/20/24 05:30 Temperature Pulse Rate 51 L 49 L Respiratory Rate 27 H 22 H Blood Pressure 136/82 Pulse Oximetry 97 96 97 Oxygen Delivery 09/20/24 05:45 09/20/24 07:30 09/20/24 07:45 Temperature Pulse Rate 52 L 53 L 48 L Respiratory Rate 28 H 17 19 Blood Pressure Pulse Oximetry 97 96 98 Oxygen Delivery 09/20/24 07:53 09/20/24 07:57 09/20/24 08:00 Temperature Pulse Rate 49 L 48 L 49 L Respiratory Rate 15 14 17 Blood Pressure 135/74 135/74 Pulse Oximetry 97 97 97 Oxygen Delivery 09/20/24 08:02 09/20/24 08:15 09/20/24 08:30 Temperature Pulse Rate 47 L 51 L 46 L Respiratory Rate 17 18 17 Blood Pressure 133/73 Pulse Oximetry 96 99 96 Oxygen Delivery 09/20/24 08:45 09/20/24 09:02 09/20/24 09:19 Temperature Pulse Rate 49 L 60 56 L Respiratory Rate 15 20 17 Blood Pressure 187/92 H Pulse Oximetry 96 96 97 Oxygen Delivery 09/20/24 09:30 09/20/24 09:45 09/20/24 10:00 Temperature Pulse Rate 57 L 55 L 57 L Respiratory Rate 17 18 20 Blood Pressure Pulse Oximetry 96 Oxygen Delivery 09/20/24 10:02 09/20/24 10:15 09/20/24 10:30 Temperature Pulse Rate 58 L 54 L 49 L Respiratory Rate 14 19 17 Blood Pressure 144/78 H Pulse Oximetry 96 93 93 Oxygen Delivery 09/20/24 10:45 09/20/24 11:00 09/20/24 11:02 Temperature Pulse Rate 51 L Respiratory Rate 15 Blood Pressure 183/91 H Pulse Oximetry 94 98 100 Oxygen Delivery Exam 2 Const: General: no acute distress HENMT: Face/Nose/Sinus: no epistaxis Mouth: Yes moist mucous membranes Eyes: Sclera: sclerae normal EOM: EOMs intact bilaterally Neck: Neck: supple Resp: Auscultation: clear to auscultation bilaterally, no rales and no rhonchi Cardio: Rate: regular rate and bradycardic Heart sounds: no murmurs GI: GI Palp: Yes Soft to palpation and No Tenderness to palpation present (GI) : Male General Exam: No erythema Skin: General skin exam: normal color Neuro: Speech: normal speech Psych: Mental Status: mental status grossly normal Results Labs and Meds 09/20/24 05:28 09/20/24 05:28 Lab results: Cardiac Enzymes 09/20/24 09/20/24 09/20/24 Range/Units 05:28 09:14 11:15 AST 37 (17-59) U/L Troponin I < 0.012 < 0.012 < 0.012 (0.000-0.034) ng/mL CBC 09/20/24 Range/Units 05:28 WBC 10.0 (4.5-10.0) K/mm3 RBC 5.00 (4.6-6.20) M/mm3 Hgb 14.8 (14.0-18.0) g/dL Hct 45.2 (42.0-52.0) % Plt Count 201 (150-375) k/mm3 Lymph # (Auto) 1.62 (0.9-3.2) K/mm3 Dickens # (Auto) 0.4 (0.1-0.6) K/mm3 Eos # (Auto) 0.0 (0-0.3) K/mm3 Baso # (Auto) 0.0 (0.0-0.1) K/mm3 Comprehensive Metabolic Panel 09/20/24 Range/Units 05:28 Sodium 135 L (137-145) mmol/L Potassium 5.1 H (3.4-5.0) mmol/L Chloride 101 (98-107) mmol/L Carbon Dioxide 26 (22-30) mmol/L BUN 24 H (9-20) mg/dL Creatinine 0.78 (0.7-1.3) mg/dL Glucose 165 H (65-110) mg/dL Calcium 9.2 (8.4-10.2) mg/dL AST 37 (17-59) U/L ALT 56 H (6-50) U/L Alkaline Phosphatase 85 (38-126) U/L Total Protein 7.0 (6.3-8.2) g/dL Albumin 4.2 (3.5-5.1) g/dL Patient Weight 09/20/24 23:59 Weight 113.6 kg
[2024-09-20] MEDS: LOSARTAN POTASSIUM 25 MG TABLET PO (16:47)
[2024-09-21] VITALS (16 sets, daily range): BP systolic 122–146; BP diastolic 61–86; PULSE 50–76; RESP 16–22; TEMP 36.6–36.9; O2SAT 94–97
--- NOTE | 2024-09-21 | ECHO_ITS ---
Patient Info Name: Joe Chávez Age: 64 years : 1960 Gender: Male Ht: 68 in Wt: 250 lbs BSA: 2.38 m2 HR: 70 bpm BP: 146 / 80 mmHg Heart Rhythm: Sinus Rhythm Technical Quality: Fair Exam Date: 09/21/2024 3:41 PM Exam Location: Echo Lab Patient Status: Inpatient Admit Date: 09/20/2024 Staff Ordering Physician: Dameon Kunz MD Sales Operations Analyst: Yann Cotto RDCS Attending Provider: Miah Rothman MD Referring Physician: Ze ALVAREZ; Exam Type: CA echo doppler color flow Study Info Indications - ABN EKG - CHEST PAIN Complete two-dimensional, color flow and Doppler transthoracic echocardiogram is performed. Summary 1. Left ventricular chamber dimension is normal. 2. Left ventricular systolic function is normal, estimated at >70%. 3. There is moderately increased left ventricular wall thickness. 4. The left ventricular diastolic function is grade I diastolic dysfunction. 5. Right ventricular systolic function is normal. 6. There is mild tricuspid valve regurgitation. Left Ventricle Left ventricular chamber dimension is normal. Left ventricular systolic function is normal, estimated at >70%. There is moderately increased left ventricular wall thickness. The left ventricular diastolic function is grade I diastolic dysfunction. Right Ventricle Right ventricular chamber dimension is normal. Right ventricular systolic function is normal. Left Atria Left atrial chamber dimension is normal. Right Atria Right atrial chamber dimension is normal. Atrial Septum Intact interatrial septum visualized by color flow imaging. Aortic Valve The aortic valve is not well visualized. There is no aortic valve stenosis. There is no aortic valve regurgitation. Pulmonic Valve The pulmonic valve is not well visualized. Mitral Valve There is trace mitral valve regurgitation. Tricuspid Valve There is mild tricuspid valve regurgitation. Pericardium/Pleural The pericardium appears epicardial fat pad. There is no pericardial effusion. Inferior Vena Cava Inferior vena cava is not well visualized. Aorta The aortic root size at the sinus of Valsalva is normal. Left Ventricular Outflow Tract Name Value Normal LVOT 2D LVOT Diameter 2.3 cm LVOT Doppler LVOT Peak Gradient 12 mmHg LVOT Mean Gradient 8 mmHg LVOT VTI 34 cm LVOT VTI/AV VTI Ratio 0.9 LVOT Stroke Volume 137 ml LVOT CO 14.9 l/min LVOT CI 6.3 l/min/m2 Pulmonic Valve Name Value Normal RVOT Doppler RVOT Peak Gradient 6 mmHg PV Doppler PV Peak Gradient 7 mmHg PV Regurgitation Doppler MI Peak End Diastolic Velocity 66 cm/s Mitral Valve Name Value Normal MV Doppler MV Decel [place] 355 cm/s2 MV PHT 64 ms MV Area (PHT) 3.4 cm2 4.0-5.0 MV Diastolic Function MV E Peak Velocity 79 cm/s MV A Peak Velocity 86 cm/s MV E/A 0.9 MV Decel Time 221 ms MV Annular TDI MV E/e' (Septal) 10.8 <=8.0 MV E/e' (Lateral) 7.1 <=8.0 MV E/e' (Average) 8.9 Aorta Name Value Normal Ascending Aorta Ao Root Diameter (MM) 3.9 cm Ao Root Diam Index (MM) 1.6 cm/m2 Aortic Valve Name Value Normal AV Doppler AV Peak Velocity 188 cm/s AV Peak Gradient 14 mmHg AV Mean Gradient 9 mmHg AV VTI 38 cm AV Area (Cont Eq VTI) 3.7 cm2 >=3.0 AV Area (Cont Eq Kt) 3.7 cm2 AV Regurgitation 2D LVOT Area 4.0 cm2 Ventricles Name Value Normal LV Dimensions 2D/MM IVS Diastolic Thickness (2D) 2.5 cm 0.6-1.0 LVID Diastole (2D) 4.6 cm 4.2-5.8 LVIW Diastolic Thickness (2D) 1.5 cm 0.6-1.0 LVID Systole (2D) 2.5 cm 2.5-4.0 LVOT Diameter 2.3 cm LV Mass (2D Cubed) 465.97 g 88.00-224.00 LV Mass Index (2D Cubed) 196 g/m2 49-115 Relative Wall Thickness (2D) 0.66 LV Fractional Shortening/Ejection Fraction 2D/MM LV Fractional Shortening (2D) 47 % 25-43 LV EF (2D Teicholz) 78 % 52-72 LV Diastolic Volume (4C MOD) 149 ml LV EF (4C MOD) 68 % LV Diastolic Volume (2C MOD) 98 ml LV EF (2C MOD) 54 % LV Diastolic Volume (BP MOD) 121 ml 62-150 LV Diastolic Volume Index (BP MOD) 51 ml/m2 34-74 LV Systolic Volume (BP MOD) 49 ml 21-61 LV Systolic Volume Index (BP MOD) 21 ml/m2 11-31 LV EF (BP MOD) 59 % 52-72 LV Diastolic Length (4C) 8.9 cm LV Systolic Length (4C) 7.7 cm LV Stroke Volume (4C MOD) 100 ml Atria Name Value Normal LA Dimensions LA Dimension (MM) 4.2 cm 3.0-4.1 LA Volume (4C A-L) 66 ml LA Volume (BP A-L) 63 ml RA Dimensions RA Area (4C) 19.7 cm2 <=18.0 Report Signatures
[2024-09-21] MEDS: LOSARTAN POTASSIUM 25 MG TABLET PO (09:34)
--- NOTE | 2024-09-21 12:19 | PM.PNCARD ---
Progress Note: A&P Assessment and Plan (1) Hypertension: Code(s): I10 - Essential (primary) hypertension Status: Acute (2) Sleep apnea: Code(s): G47.30 - Sleep apnea, unspecified Status: Acute (3) Abnormal ECG: Code(s): R94.31 - Abnormal electrocardiogram [ECG] [EKG] Status: Acute Plan -regards to abnormal EKG, strong family history of CAD. He comes in with right upper quadrant pain radiating to the upper back which is exacerbated by eating. However given abnormal EKG and family history of CAD Lexiscan and echo were ordered. Awaiting results of both. Further recommendations to follow. -regards to hypertension, BP is now at goal with losartan 25mg daily -in regards to sleep apnea, stated that he had recently sleep study that was abnormal. Awaiting CPAP. -regards to morbid obesity courage patient for weight loss and to seek weight loss medications. Advised diet changes. -regards to right upper quadrant pain could be related to hepatic steatosis. Elevated ALT. Encourage weight loss. Subjective Date/time seen: 09/21/24 12:19 Interval history: Cardiology follow up visit 09/21/2024: Feels well today - denies any chest pain, palpitations, shortness of breath. Has some abdominal discomfort. Review of Systems Review of Systems: All systems reviewed & are unremarkable except as noted in HPI and below Constitutional: Constitutional: Denies body ache(s), Denies chills and Denies excessive sweating Eyes: Eyes: Denies blurry vision ENT: Denies dysphagia Cardiovascular: Cardiovascular: Denies chest pain, Denies pedal edema and Denies lightheadedness Respiratory: Respiratory: Denies chest congestion and Denies wheezing Gastrointestinal: Gastrointestinal: Reports abdominal pain, Denies dysphagia, Reports nausea and Reports vomiting Genitourinary: Genitourinary: Denies urinary urgency Musculoskeletal: Musculoskeletal: Denies back pain Integumentary/Breasts: Skin/Breast: Denies pruritus Neurologic: Denies Abnormal speech present and Denies confusion Psychiatric: Psychiatric: Denies confusion Endocrine: Endocrine: Denies excessive sweating Hematologic/Lymphatic: Hematologic/Lymphatic: Denies easy bruising Allergic/Immunologic: Allergic/Immunologic: Reports GI upset with certain foods and Denies wheezing Exam Const: General: no acute distress; No confusion Orientation/consciousness: No confusion HENMT: Face/Nose/Sinus: no epistaxis Mouth: Yes moist mucous membranes Eyes: Sclera: sclerae normal EOM: EOMs intact bilaterally Neck: Neck: supple Resp: Auscultation: clear to auscultation bilaterally, no rales and no rhonchi Cardio: Rate: regular rate Rhythm: regular rhythm Heart sounds: no murmurs Skin: General skin exam: normal color Neuro: General: No confusion Speech: normal speech and No Abnormal speech present Extrem: General: normal to inspection Psych: Mental Status: mental status grossly normal Objective Data Vital Signs Vital Signs: Vital Signs - 24 hr 09/20/24 14:00 09/20/24 16:00 09/20/24 16:00 Temperature 36.6 C Pulse Rate 56 L 53 L 52 L Respiratory Rate 18 Blood Pressure 153/78 H Pulse Oximetry 98 Oxygen Delivery 09/20/24 16:00 09/20/24 18:00 09/20/24 20:00 Temperature 36.9 C Pulse Rate 59 L 65 Respiratory Rate 16 Blood Pressure 135/59 L Pulse Oximetry 96 Oxygen Delivery Room Air 09/20/24 20:00 09/20/24 20:00 09/20/24 22:00 Temperature Pulse Rate 65 72 Respiratory Rate Blood Pressure Pulse Oximetry Oxygen Delivery Room Air 09/21/24 00:00 09/21/24 00:00 09/21/24 00:00 Temperature 36.9 C Pulse Rate 64 50 L Respiratory Rate 16 Blood Pressure 122/63 Pulse Oximetry 94 Oxygen Delivery Room Air 09/21/24 02:00 09/21/24 04:00 09/21/24 04:00 Temperature Pulse Rate 59 L 51 L Respiratory Rate Blood Pressure Pulse Oximetry Oxygen Delivery Room Air 09/21/24 04:00 09/21/24 06:00 09/21/24 07:38 Temperature 36.9 C 36.7 C Pulse Rate 70 52 L 52 L Respiratory Rate 16 16 Blood Pressure 146/80 H 137/86 Pulse Oximetry 96 94 Oxygen Delivery 09/21/24 08:00 09/21/24 08:00 09/21/24 10:00 Temperature Pulse Rate 55 L 53 L Respiratory Rate Blood Pressure Pulse Oximetry Oxygen Delivery Room Air 09/21/24 11:36 09/21/24 11:53 Temperature 36.7 C Pulse Rate 58 L Respiratory Rate 18 Blood Pressure 129/67 Pulse Oximetry 97 Oxygen Delivery Room Air Intake/Output Intake/Output: Intake & Output 09/18/24 09/19/24 09/20/24 09/21/24 23:59 23:59 23:59 23:59 Intake Total 480 475 Output Total 650 1225 Balance -170 -750 Meds/Results Medications: Active Medications Generic Name Dose Route Start Last Admin Trade Name Freq PRN Reason Stop Dose Admin Losartan Potassium 25 mg 09/20/24 14:00 09/21/24 09:34 Losartan Potassium 25 Mg Tablet PO 25 mg DAILY VINCENZO Administration Perflutren Lipid Microsphere 0 ml 09/20/24 07:31 Perflutren Lipid Microspheres 1.5 Ml Vial Diluted To 10 Ml Total Volume IV PUSH 09/23/24 07:31 ONCE PRN adequate visualization Protocol Perflutren Lipid Microsphere 0 ml 09/20/24 10:03 Perflutren Lipid Microspheres 1.5 Ml Vial Diluted To 10 Ml Total Volume IV PUSH 09/23/24 10:03 ONCE PRN adequate visualization Protocol Radiology Results: ITS Impressions Abdomen/Pelvis CT 09/20/24 06:30 Impression: No acute abnormalities seen. Diffuse hepatic steatosis. Small fat-containing umbilical hernia. Chest X-Ray 09/20/24 06:32 Impression: Clear lungs.
--- NOTE | 2024-09-21 13:11 | EST_ITS ---
Patient Info Name: Joe Chávez Age: 64 years : 1960 Gender: Male Ht: 68 in Wt: 248 lbs BSA: 2.37 m2 HR: 48 bpm BP: 156 / 90 mmHg Exam Date: 09/21/2024 12:19 PM Exam Location: Echo Lab Patient Status: Inpatient Admit Date: 09/20/2024 Staff Ordering Physician: Yvon Szymanski MD Attending Provider: Miah Rothman MD Exercise Technologist: Liza Andres [facility] Nurse: Kary Lewis APN Exam Type: CA stress mario w NM Study Info A regadenoson stress test was performed. Summary 1. No ST/T wave changes diagnostic of ischemia with Lexiscan. 2. Please correlate with nuclear medicine images, reported separately. 3. Stress test supervised by Kary Abreu NP. Stress test interpreted by Cristian Luna MD. Protocol: Lexiscan Stress ECG Details Stage: REST Duration (min): 2 min : 9 sec HR (bpm): 48 SBP (mmHg): 156 DBP (mmHg): 90 Stage: REST Duration (min): 5 min : 9 sec HR (bpm): 53 SBP (mmHg): 156 DBP (mmHg): 90 Stage: STAGE 1 Duration (min): 1 min : 0 sec HR (bpm): 68 SBP (mmHg): 182 DBP (mmHg): 71 Stage: RECOVERY Duration (min): 1 min : 0 sec HR (bpm): 78 SBP (mmHg): 182 DBP (mmHg): 71 Stage: RECOVERY Duration (min): 2 min : 0 sec HR (bpm): 71 SBP (mmHg): 182 DBP (mmHg): 71 Stage: RECOVERY Duration (min): 3 min : 0 sec HR (bpm): 68 SBP (mmHg): 182 DBP (mmHg): 71 Stage: RECOVERY Duration (min): 3 min : 22 sec HR (bpm): 65 SBP (mmHg): 155 DBP (mmHg): 101 Rest HR: 53 bpm Peak HR: 78 bpm Rest Sys BP: 156 mmHg Peak Sys BP: 182 mmHg Max Pred HR: 157 bpm % Max Pred HR: 50 % Target HR: 133 bpm Max RPP: 14,196 bpm*mmHg Total Time: 1 min : 0 sec Rest Rivera BP: 90 mmHg Peak Rivera BP: 71 mmHg Total Dose: 0.4 mg Resting ECG Sinus rhythm. Diffuse T-wave abnormality. Stress ECG No ST/T wave changes diagnostic of ischemia with Lexiscan. Arrhythmias None. Report Signatures
--- NOTE | 2024-09-21 14:39 | P.PNIM_ITS ---
Progress Note: A&P Assessment and Plan (1) Abnormal ECG: Code(s): R94.31 - Abnormal electrocardiogram [ECG] [EKG] Status: Acute (2) Epigastric pain: Code(s): R10.13 - Epigastric pain Status: Acute (3) Obstructive sleep apnea: Code(s): G47.33 - Obstructive sleep apnea (adult) (pediatric) Status: Acute (4) Hypertension: Code(s): I10 - Essential (primary) hypertension Status: Acute Plan 64-year-old male presenting to the emergency room with a chief complaint of epigastric and right upper quadrant abdominal pain is intermittent in nature for last month. Associated with meals, slowly resolved without eating and with rest. Denies any fever, chills, diarrhea, constipation, urinary complaints. Denies any history of abdominal surgeries. Had an ultrasound of his right upper quadrant and gallbladder approximately 1 month prior which showed hepatic steatosis with hepatomegaly. Patient states the pain got severe this afternoon which prompted him to seek evaluation. He had nausea and vomiting in triage were present he states his pain has subsided as well as nausea. He is currently asymptomatic during my initial assessment. On ED evaluation he was hypertensive and mildly bradycardic. Laboratory workup revealed normal WBC at 10 hemoglobin of 14.8 Chem panel was unremarkable. Blood sugar was 165. Troponin came back negative with less than 0.012. Urinalysis negative for infection. CT abdomen pelvis was done which showed no acute abnormality diffuse hepatic steatosis and small fat containing umbilical hernia. Chest x-ray showed clear lungs. EKG done in the ER revealed diffuse broad T- wave inversion in the lateral leads V4 to V6 and 1 and aVL. Repeat EKGs has been similar with no dynamic changes. With abnormal EKGs is admitted for further treatment with cardiology consultation. He has significant history of premature coronary artery disease in family echo pending. stress test ordered which is pending as well. for RUQ pain, will further evaluate with a HIDA scan. general surgery consultation He does have obstructive sleep apnea currently undergoing evaluation with sleep study. Recent home sleep study showed extremely severe obstructive sleep apnea with AHI of 81.9. He is getting started with CPAP soon as an outpatient DVT prophylaxis SCDs code status full code Subjective Date/time seen: 09/21/24 14:39 Interval history: no new complaints. he refused to get stress test, wants to get hida scan. Review of Systems Review of Systems: All systems reviewed & are unremarkable except as noted in HPI and below Exam Narrative: GENERAL: [Well-appearing, well-nourished, and in no acute distress.] HEAD: [Normocephalic, atraumatic.] EYES: [PERRLA and EOMI.] ENT: Nares clear, no rhinorrhea or epistaxis. Mucous membranes moist. NECK: Supple. CHEST: [Clear to auscultation. No respiratory distress.] HEART: [Regular rate and rhythm]. No murmur heard. [Normal peripheral pulses.] ABDOMEN: Protuberant but soft, mildly tender to palpation in the epigastrium and right upper quadrant, negative Hays sign, [No rigidity or guarding] EXTREMITIES: Normal range of motion. [No edema.] SKIN: Warm, dry, no rash. NEURO: [No focal deficits]. Alert and oriented [x3.] PSYCH: [Normal mood and affect.] Objective Data Vital Signs Vital Signs: Vital Signs - 24 hr 09/20/24 16:00 09/20/24 16:00 09/20/24 16:00 Temperature 97.9 F Pulse Rate 53 L 52 L Respiratory Rate 18 Blood Pressure 153/78 H Pulse Oximetry 98 Oxygen Delivery Room Air 09/20/24 18:00 09/20/24 20:00 09/20/24 20:00 Temperature 98.4 F Pulse Rate 59 L 65 Respiratory Rate 16 Blood Pressure 135/59 L Pulse Oximetry 96 Oxygen Delivery Room Air 09/20/24 20:00 09/20/24 22:00 09/21/24 00:00 Temperature 98.5 F Pulse Rate 65 72 64 Respiratory Rate 16 Blood Pressure 122/63 Pulse Oximetry 94 Oxygen Delivery 09/21/24 00:00 09/21/24 00:00 09/21/24 02:00 Temperature Pulse Rate 50 L 59 L Respiratory Rate Blood Pressure Pulse Oximetry Oxygen Delivery Room Air 09/21/24 04:00 09/21/24 04:00 09/21/24 04:00 Temperature 98.4 F Pulse Rate 51 L 70 Respiratory Rate 16 Blood Pressure 146/80 H Pulse Oximetry 96 Oxygen Delivery Room Air 09/21/24 06:00 09/21/24 07:38 09/21/24 08:00 Temperature 98.1 F Pulse Rate 52 L 52 L Respiratory Rate 16 Blood Pressure 137/86 Pulse Oximetry 94 Oxygen Delivery Room Air 09/21/24 08:00 09/21/24 10:00 09/21/24 11:36 Temperature 98.1 F Pulse Rate 55 L 53 L 58 L Respiratory Rate 18 Blood Pressure 129/67 Pulse Oximetry 97 Oxygen Delivery 09/21/24 11:53 09/21/24 14:00 Temperature Pulse Rate 64 Respiratory Rate Blood Pressure Pulse Oximetry Oxygen Delivery Room Air Intake/Output Intake/Output: Intake & Output 09/18/24 09/19/24 09/20/24 09/21/24 23:59 23:59 23:59 23:59 Intake Total 480 475 Output Total 650 1600 Balance -170 1125 Meds/Results Medications: Active Medications Generic Name Dose Route Start Last Admin Trade Name Freq PRN Reason Stop Dose Admin Losartan Potassium 25 mg 09/20/24 14:00 09/21/24 09:34 Losartan Potassium 25 Mg Tablet PO 25 mg DAILY VINCENZO Administration Perflutren Lipid Microsphere 0 ml 09/20/24 07:31 Perflutren Lipid Microspheres 1.5 Ml Vial Diluted To 10 Ml Total Volume IV PUSH 09/23/24 07:31 ONCE PRN adequate visualization Protocol Perflutren Lipid Microsphere 0 ml 09/20/24 10:03 Perflutren Lipid Microspheres 1.5 Ml Vial Diluted To 10 Ml Total Volume IV PUSH 09/23/24 10:03 ONCE PRN adequate visualization Protocol Radiology Results: ITS Impressions Abdomen/Pelvis CT 09/20/24 06:30 Impression: No acute abnormalities seen. Diffuse hepatic steatosis. Small fat-containing umbilical hernia. Chest X-Ray 09/20/24 06:32 Impression: Clear lungs. Lexiscan Stress Test 09/21/24 13:15 IMPRESSION: 1. Normal myocardial perfusion at rest and during stress. 2. Left ventricular ejection fraction measuring >70%.
[2024-09-22] VITALS (11 sets, daily range): BP systolic 140–157; BP diastolic 78–84; PULSE 47–86; RESP 16–22; TEMP 36.5–36.7; O2SAT 95–97
[2024-09-22 08:47] LABS: Alanine Aminotransferase 67 U/L (6-50); Albumin Level 4.2 g/dL (3.5-5.1); Alkaline Phosphatase 79 U/L (38-126); Anion Gap 6 mmol/L (4-12); Aspartate Amino Transferase 40 U/L (17-59); Bilirubin,Total 0.8 mg/dL (0.2-1.3); Blood Urea Nitrogen 20 mg/dL (9-20); Carbon Dioxide 29 mmol/L (22-30); Chloride 103 mmol/L (98-107); Estimated CRCL calculation 93 ml/min; Estimated Glomerular Filt Rate > 60; Glucose 145 mg/dL (65-110); Lipase 69 U/L (23-300); Potassium 4.6 mmol/L (3.4-5.0); Sodium 138 mmol/L (137-145)
[2024-09-22 08:56] LABS: Hemoglobin A1C 7.4 % (<5.7)
[2024-09-22] MEDS: LOSARTAN POTASSIUM 25 MG TABLET PO (10:51)
--- NOTE | 2024-09-22 11:35 | P.CONGS_ITS ---
Assessment and Plan Assessment and plan (1) Biliary colic: Code(s): K80.50 - Calculus of bile duct without cholangitis or cholecystitis without obstruction Status: Acute Assessment and Plan: * The patient has had intermittent symptoms of right upper quadrant abdominal pain following fatty meals for the past few months. CT scan and outpatient ultrasound showed no evidence of cholelithiasis or acute cholecystitis. He had EKG changes on admission and so far cardiac workup has been unremarkable. HIDA scan today showed a gallbladder ejection fraction of 23%. His clinical picture an abnormal HIDA are consistent with gallbladder dysfunction or chronic cholecystitis. It is likely his episodes of right upper quadrant pain have been related to his gallbladder. His abdominal pain has resolved and he is tolerating a diet. He is stable from a surgical standpoint to be discharged today. We would recommend continuing a low-fat diet. We discussed dietary modification versus proceeding with a laparoscopic cholecystectomy as an outpatient. Description of the procedure, risks, benefits, expected outcomes, and expected recovery were discussed with the patient in detail. The patient would like to proceed with a cholecystectomy, which can be set up as an outpatient when he is medically optimized. Will sign off at this time. Call with any further questions or concerns. (2) Abnormal biliary HIDA scan: Code(s): R94.8 - Abnormal results of function studies of other organs and systems Status: Acute (3) Hypertension: Code(s): I10 - Essential (primary) hypertension Status: Acute (4) Obstructive sleep apnea: Code(s): G47.33 - Obstructive sleep apnea (adult) (pediatric) Status: Acute Assessment and Plan: * Recently diagnosed, awaiting CPAP Plan I have discussed the patient's case and plan of care with Dr. Juan. History of Present Illness Consult details Consult date: 09/22/24 Reason for consult: other (Right upper quadrant abdominal pain) Requesting physician: Miah Rothman MD Narrative: This is a 64-year-old man who presented to the ER 2 days ago with right upper quadrant and epigastric abdominal pain. He has had intermittent episodes of similar pain over the past few months. He reports about 10 episodes. His pain comes on after eating a fatty meal. This episode of pain started after eating a cheeseburger and fries. Typically, his pain resolves by the following morning and he has seen his primary care provider in the past for this pain. He has had an outpatient ultrasound that was reportedly normal. He was diagnosed with fatty liver and recommended to change his diet. He has had nausea and vomiting with previous episodes, but not with the recent episode. He was admitted to the hospital for EKG changes and for further cardiac workup. Cardiology was consulted and he had a Lexiscan and echocardiogram. Lexiscan unremarkable. Echocardiogram showed grade 1 diastolic dysfunction, EF greater than 70%, mild tricuspid valve regurgitation. CT scan of the abdomen and pelvis showed no acute abnormalities, diffuse hepatic steatosis and a small fat containing umbilical hernia. Has also able to review his right upper quadrant ultrasound in July that showed diffuse fatty infiltration of the liver with associated hepatomegaly, but normal gallbladder with no evidence of gallstones or wall thickening. During this admission, he additionally had a HIDA scan that showed a gallbladder ejection fraction of 23%, which could be related to gallbladder dysfunction or chronic cholecystitis. He is now seen in the IMU. He reports his abdominal pain resolved prior to his admission. He has been tolerating a heart healthy diet without any recurrent pain. He denies any specific complaints this morning. It is noted that his hemoglobin A1c was checked today and was 7.4 without previous known history of diabetes. Denies any previous abdominal surgeries. Review of Systems 2 Review of Systems: All systems reviewed & are unremarkable except as noted in HPI and below PMFSH Past Medical History Medical History Hypertension Sleep apnea Rotator cuff injury Family History Family History Father Heart attack Mother Sibling Sibling Heart disease Social History Social History Smoking status: Never smoker Second hand tobacco smoke exposure: No Alcohol intake: former Substance use: current Substance use type: marijuana Last use: yesterday Do You Feel Safe in your Home?: Yes Lack of Transportation: No Lack of Food: Never True Current Housing: I Have Housing Concerned About Future Housing: No Difficulty Paying Gas/Electric Bills: No Difficulty Paying for Meds: No Currently Unemployed: No Education: Associate Degree Difficulty w/ Childcare or Family Care: No Living arrangements: with family Occupation/Education: retired Additional occupation/education comments: [email or web address] Gender identity (if verbalized by the patient): Male Spiritual care concerns: No Meds Home Medications and Allergies Home Medications ?Medication ?Instructions ?Recorded ?Confirmed ?Type diclofenac sodium 75 mg 75 mg PO BID #60 tabs 03/04/24 09/20/24 Rx tablet,delayed release Allergies Allergy/AdvReac Type Severity Reaction Status Date / Time No Known Drug Allergies Allergy Verified 09/20/24 13:15 Vital Signs Vital Signs - 24 hr 09/21/24 11:36 09/21/24 11:53 09/21/24 14:00 Temperature 98.1 F Pulse Rate 58 L 64 Respiratory Rate 18 Blood Pressure 129/67 Pulse Oximetry 97 Oxygen Delivery Room Air 09/21/24 15:29 09/21/24 16:00 09/21/24 16:00 Temperature 97.9 F Pulse Rate 76 54 L Respiratory Rate 22 H Blood Pressure 124/61 Pulse Oximetry 95 Oxygen Delivery Room Air 09/21/24 18:00 09/21/24 20:00 09/21/24 20:00 Temperature Pulse Rate 70 73 Respiratory Rate Blood Pressure Pulse Oximetry Oxygen Delivery Room Air 09/21/24 20:29 09/21/24 22:00 09/21/24 23:15 Temperature 98.3 F 98.1 F Pulse Rate 72 68 67 Respiratory Rate 22 H 22 H Blood Pressure 136/70 143/73 H Pulse Oximetry 96 97 Oxygen Delivery 09/22/24 00:00 09/22/24 00:00 09/22/24 02:00 Temperature Pulse Rate 53 L 48 L Respiratory Rate Blood Pressure Pulse Oximetry Oxygen Delivery Room Air 09/22/24 04:00 09/22/24 04:00 09/22/24 04:20 Temperature 98.0 F Pulse Rate 53 L 86 Respiratory Rate 22 H Blood Pressure 147/78 H Pulse Oximetry 95 Oxygen Delivery Room Air 09/22/24 06:00 09/22/24 07:28 09/22/24 11:27 Temperature 97.7 F Pulse Rate 53 L 50 L Respiratory Rate 16 Blood Pressure 140/83 Pulse Oximetry 95 Oxygen Delivery Room Air Exam 2 Const: General: comfortable and no acute distress Nutritional Appearance: o verweight Orientation/consciousness: patient oriented x3 HENMT: Head: normocephalic and atraumatic Ears: hearing grossly normal bilaterally Mouth: Yes moist mucous membranes Eyes: General: appearance normal, both eyes and all related structures P upils: Equal, round and reactive pupils present Neck: Neck: normal visual inspection and full ROM Resp: Effort & Inspection: no respiratory distress Auscultation: clear to auscultation bilaterally Cardio: Rate: regular rate Rhythm: regular rhythm Peripheral pulses: P eripheral pulses 2+ throughout GI: Inspection: non-distended GI Palp: Yes Soft to palpation, No Tenderness to palpation present (GI), No Guarding due to palpation present (GI), Yes No hepatosplenomegaly present and No Rebound tenderness present Auscultation: n ormal bowel sounds Skin: General skin exam: normal color Neuro: General: moves all extremities and no focal motor deficits Speech: n ormal speech Motor exam (neuro): 5/5 motor strength present throughout Extrem: General: normal to inspection and no edema Psych: Mental Status: mental status grossly normal Attitude: cooperative Insight: Good insight present (Psych) Judgement: Good judgement present (Psych) Results Labs 09/20/24 05:28 09/22/24 08:15 Labs: Abnormal lab results 09/22/24 09/22/24 Range/Units 08:15 08:27 Glucose 145 H (65-110) mg/dL Hemoglobin A1c 7.4 H (<5.7) % ALT 67 H (6-50) U/L Diabetes panel 09/22/24 09/22/24 Range/Units 08:15 08:27 Sodium 138 (137-145) mmol/L Potassium 4.6 (3.4-5.0) mmol/L Chloride 103 (98-107) mmol/L Carbon Dioxide 29 (22-30) mmol/L BUN 20 (9-20) mg/dL Creatinine 0.87 (0.7-1.3) mg/dL Glucose 145 H (65-110) mg/dL Hemoglobin A1c 7.4 H (<5.7) % Calcium 9.0 (8.4-10.2) mg/dL AST 40 (17-59) U/L ALT 67 H (6-50) U/L Alkaline Phosphatase 79 (38-126) U/L Total Protein 7.0 (6.3-8.2) g/dL Albumin 4.2 (3.5-5.1) g/dL Calcium panel 09/22/24 Range/Units 08:15 Calcium 9.0 (8.4-10.2) mg/dL Albumin 4.2 (3.5-5.1) g/dL Pituitary panel 09/22/24 Range/Units 08:15 Sodium 138 (137-145) mmol/L Potassium 4.6 (3.4-5.0) mmol/L Chloride 103 (98-107) mmol/L Carbon Dioxide 29 (22-30) mmol/L BUN 20 (9-20) mg/dL Creatinine 0.87 (0.7-1.3) mg/dL Glucose 145 H (65-110) mg/dL Calcium 9.0 (8.4-10.2) mg/dL Adrenal panel 09/22/24 Range/Units 08:15 Sodium 138 (137-145) mmol/L Potassium 4.6 (3.4-5.0) mmol/L Chloride 103 (98-107) mmol/L Carbon Dioxide 29 (22-30) mmol/L BUN 20 (9-20) mg/dL Creatinine 0.87 (0.7-1.3) mg/dL Glucose 145 H (65-110) mg/dL Calcium 9.0 (8.4-10.2) mg/dL Total Bilirubin 0.8 (0.2-1.3) mg/dL AST 40 (17-59) U/L ALT 67 H (6-50) U/L Alkaline Phosphatase 79 (38-126) U/L Total Protein 7.0 (6.3-8.2) g/dL Albumin 4.2 (3.5-5.1) g/dL All other labs normal. Imaging Additional studies: ITS Impressions Abdomen/Pelvis CT 09/20/24 06:30 Impression: No acute abnormalities seen. Diffuse hepatic steatosis. Small fat-containing umbilical hernia. Chest X-Ray 09/20/24 06:32 Impression: Clear lungs. Lexiscan Stress Test 09/21/24 13:15 IMPRESSION: 1. Normal myocardial perfusion at rest and during stress. 2. Left ventricular ejection fraction measuring >70%. Hepatobiliary Scan Nuclear Medicine 09/22/24 10:55 IMPRESSION: 1. Gallbladder ejection fraction in the lower range of normal. Note that this value overlaps with the range of values that may be seen with gallbladder dysfunction and/or chronic cholecystitis if there is appropriate clinical correlation.
--- NOTE | 2024-09-22 13:40 | P.DS_ITS ---
DS: Admitting Diagnosis Discharge Date 09/22/24 Admitting Diagnosis Abdominal pain DS: Discharge Diagnosis Discharge Diagnosis (1) Abnormal ECG: Code(s): R94.31 - Abnormal electrocardiogram [ECG] [EKG] Status: Acute (2) Epigastric pain: Code(s): R10.13 - Epigastric pain Status: Acute (3) Obstructive sleep apnea: Code(s): G47.33 - Obstructive sleep apnea (adult) (pediatric) Status: Acute (4) Hypertension: Code(s): I10 - Essential (primary) hypertension Status: Acute (5) Biliary colic: Code(s): K80.50 - Calculus of bile duct without cholangitis or cholecystitis without obstruction Status: Acute (6) Diabetes mellitus: Code(s): E11.9 - Type 2 diabetes mellitus without complications Status: Acute DS: Summary Hospital Course Reason for hospitalization: 64yo male with NAVA here for chief complaint of epigastric and right upper quadrant abdominal pain. Please see H&P for details. Hospital Course: Patient has had an ultrasound of his right upper quadrant and gallbladder approximately 1 month prior which showed hepatic steatosis with hepatomegaly. On ED evaluation he was hypertensive and mildly bradycardic. Laboratory workup revealed normal CBC. CMP showed ALT 56, glucose 165, BUN 24, potassium 5.2 and sodium 135. Lipase normal. No hx of diabetes. Troponin negative x3. Urinalysis showed 1+ protein but negative for infection. CT abdomen pelvis showed no acute abnormality but with diffuse hepatic steatosis and small fat-containing umbilical hernia. Chest x-ray showed clear lungs. EKG revealed bradycardia (48), marked T wave changes in the anterolateral leads and to a lesser extent in the inferior leads. Repeat EKGs showed similar findings. Cardiology consulted. He has significant history of premature coronary artery disease in family. Echo showing LVEF >70%, moderate LV wall thickness, Grade I diastolic dysfunction and mild TR. Lexiscan stress test showing no ST/T wave changes and nuclear images showing no definitive reversible or fixed perfusion abnormality to suggest ischemia or infarction. Normal LV chamber size, wall motion and EF (>70%). He does have obstructive sleep apnea currently undergoing evaluation with sleep study. Recent home sleep study showed extremely severe obstructive sleep apnea with AHI of 81.9. He is getting started with CPAP soon as an outpatient. His HTN and bradycardia may be related to his untreated sleep apnea. Repeat potassium normal. Hgb A1c 7.4%. He was started on losartan for the protein in his urine, elevated blood pressure and newly diagnosed diabetes. He underwent a HIDA scan that showed GBEF 23% which is low end of normal range. General Surgery felt patient has biliary colic explaining his abdominal symptoms and outpatient cholecystectomy was recommended. Patient to call for an appointment. He overall did well and was able to be discharged home on 09/22/24. Status at Discharge Cognitive/behavioral status at discharge: stable Time Spent with Patient Time attestation: Total time spent providing and/or coordinating discharge services: 35 minutes Time spent: Greater than 30 minutes Exam Narrative: AF 97.7 157/84 58 16 97% ra Gen - NARD Chest - CTA bilaterally, nml RR CV - RRR S1/S2. Tele showing occasional PVCs Abd - Soft, NT/ND, Positive BS Ext - trace pedal edema Psych - Nml mood and affect Skin - Warm and dry DS: Data Data Completed and Pending Labs on day of discharge: Labs from last 24 hours 09/22/24 09/22/24 08:27 08:15 Sodium 138 Potassium 4.6 Chloride 103 Carbon Dioxide 29 Anion Gap 6 BUN 20 Creatinine 0.87 Estim Creat Clear Calc 93 Estimated GFR > 60 Glucose 145 H Hemoglobin A1c 7.4 H Calcium 9.0 Total Bilirubin 0.8 AST 40 ALT 67 H Alkaline Phosphatase 79 Total Protein 7.0 Albumin 4.2 Lipase 69 Discharge Plan Discharge Attending physician on discharge: lApesh Pruett Consulting providers: Blanca Sutton; Ruel Juan Discharging Clinician: Alpesh Pruett Anticipated Discharge Date/Time: 09/22/24 14:00 Patient Disposition: Home, Self-Care Activity: as tolerated Diet: diabetic and low fat Discharge Instructions: Check blood pressure 1 to 2 times a day. Record and bring into your doctor for review. Call your doctor if your blood pressure is greater than 180/110. Contact your doctor or call 911 and come to the Emergency Room if you have chest pain, abdominal pain or other worrisome symptoms. Avoid NSAIDs (ibuprofen, naproxen, Aleve). Tylenol is safe to take. Follow-up with your primary care provider in 1-2 weeks. Please call for appointment. Dr. Juan's office will reach out to schedule surgery. Please call him if you haven't heard from the office by Friday. Thank you for using [facility] for your health care needs. Patient Instructions: Antibiotic Form, Low Fat Diet (DC), Diabetes and Nutrition (DC) Patient Language: Maori Stand Alone Forms: General Discharge Information Follow-up/Referrals: Ruel Juan DO [Physician] - Other Discharge Medications: New losartan 25 mg Tablet 25 mg PO DAILY Qty: 30 1RF Discontinued diclofenac sodium 75 mg tablet,delayed release (DR/EC) 75 mg PO BID Qty: 60 0RF Date of admission: 09/20/24 07:33 Primary Care Provider: LaureanoAron Admitting Provider: Miah Rothman Attending physician on admission: Miah Rothman Condition: Stable Hospitalist MIPS Heart Failure (Exclusion) Patient has history of Heart Transplant or Left Ventricular Assistive Device?: No IF YES, STOP HERE Heart Failure (Qualifier) Patient has current or prior documentation of LVEF less than or equal to 40%, or mod/servere depressed LVSF?: No IF NO, STOP HERE
== END 2024-09-22 15:18 | disposition home or self-care (01) ==
LOC: ANHED 06:15 → ANHIMU 08:31
PROVIDERS: Admitting Provider Internal Medicine; Emergency Provider Student in an Organized Health Care Education/Training Program; PCP Physician Assistant; Visit Provider Internal Medicine
DX: R10.11 Right upper quadrant pain (principal); R10.13 Epigastric pain; G47.33 Obstructive sleep apnea (adult) (pediatric); I10 Essential (primary) hypertension; K80.50 Calculus of bile duct without cholangitis or cholecystitis without obstruction; E11.9 Type 2 diabetes mellitus without complications; K76.0 Fatty (change of) liver, not elsewhere classified; K42.9 Umbilical hernia without obstruction or gangrene; R94.31 Abnormal electrocardiogram [ECG] [EKG]; E66.01 Morbid (severe) obesity due to excess calories; Z68.37 Body mass index [BMI] 37.0-37.9, adult; R74.01 Elevation of levels of liver transaminase levels; Z82.49 Family history of ischemic heart disease and other diseases of the circulatory system
CPT/HCPCS: 36415; 71045; 74177; 78227; 78452; 80053; 81001; 83036; 83690; 84484; 85025; 93005; 93017; 93306; 96374; 96376; 99285; A9270; A9502; A9537; G0378; G0379; J2785; J2805; Q9967

== ENCOUNTER 2024-10-18 03:01 | Day surgery (SDC) | payer OTHER, SELFPAY ==
[2024-10-08 09:27] VITALS: BMI 36.3
--- NOTE | 2024-10-08 09:37 | PC.NURSE ---
Report to the Outpatient Waiting Room, entrance under the green pavilion located off [facility], at time _1100_ on date _[id number]_. Planned Procedure Time: _1pm_.? Time changes happen often and if your time is changed the preop area will call you the afternoon before. - You and your visitor will be asked to self-screen and do not enter if you have any COVID symptoms. Please call surgeon if you need to reschedule. - A mask is optional within the hospital at this time. Patients may have clear liquids (water, carbonated beverages, clear teas, apple juice) until 3 hours prior to surgery with a maximum of 20 ounces. - No food from midnight until time of surgery and no smoking, or chewing tobacco (or any form of nicotine). No chewing gum, candy or mints. Take only the following medications with a SIP of water on the morning of surgery: ___None____ DO NOT STOP ANY OF YOUR OTHER PRESCRIPTION MEDICATIONS PRIOR TO SURGERY EXCEPT THE FOLLOWING Hold all vitamins and supplements for 3 days per anesthesiologist. Medications to discontinue per physician Follow instructions regarding aspirin given by Dr Juan. Date to take last dose Please no make-up, nail urdu, hairspray, perfume, deodorant, or body powder the day of surgery.? No jewelry (including any body piercings) or valuables the day of surgery, leave them at home.? Please take a shower or bath the night before, or the morning of, surgery with an antibacterial soap.? Wear comfortable, loose fitting clothing.? - Jewelry must be removed prior to entering the operating room.? Rings and piercings that are not removed may be cut off. - The hospital will not accept responsibility for valuables.? - Please leave all valuables, including medications, at home the day of surgery. If you are going home after surgery, a licensed food mobile driver must drive you home.? - NO public transportation without another adult if you receive anesthesia. - We recommend that an adult stay with you for 24 hours following discharge. - We also recommend that you do not drive, make important decision, drink alcoholic beverages, or take any drugs that were not prescribed by your health care provider for at least 24 hours after your discharge time. Follow any additional instructions given to you from your surgeon. Telephone instructions given to __Joe__and asked if any additional questions and then verbalized understanding. Patient advised to call surgeon office or pre surgery nurse liaison [phone] if any additional questions.
[2024-10-18] VITALS (8 sets, daily range): BP systolic 104–152; BP diastolic 56–77; PULSE 46–76; RESP 14–18; TEMP 36.3–36.4; O2SAT 93–97
--- OUTSIDE RECORDS SUMMARY | 2024-10-18 03:06 | XMS_ITS | Clinical Summary ---
Author Organization [facility] syeda Address [address] [place] [address] Care Team Providers Care Camouflage Specialist Name Role Phone Aron Tinsley Primary Care Provider [phone] Allergies No known active allergies Medications No known medications Active Problems No known active problems Encounters Date Type Department Care Team Description 10/06/2024 7:45 AM PATIENT CARRIER Therapy [facility] [place] [address] Dipak Mitchell, PT Right knee pain, unspecified chronicity (Primary Dx); Pain in right foot 10/05/2024 Orders Only [facility] [address] [place] [phone] Kary Lewis NP 10/04/2024 7:00 AM PATIENT CARRIER Therapy [facility] [place] [address] Kiana Brandon, JULIANNE Right knee pain, unspecified chronicity (Primary Dx); Pain in right foot 09/27/2024 Orders Only [facility] [address] [facility] [address] [place] [phone] Yvon Szymanski MD 09/21/2024 Orders Only [facility] [place] Information Management [address] [place] [address] Yvon Szymanski MD 09/15/2024 7:00 AM PATIENT CARRIER Therapy [facility] [place] [address] Dipak Mitchell, PT Right knee pain, unspecified chronicity (Primary Dx); Pain in right foot 09/15/2024 Plan of Care Documentation [facility] [place] [address] 09/13/2024 7:45 AM PATIENT CARRIER Therapy [facility] [place] [address] Dipak Mitchell, PT Right knee pain, unspecified chronicity (Primary Dx); Pain in right foot 09/10/2024 7:45 AM PATIENT CARRIER Therapy [facility] [place] [address] Dipak Mitchell, PT Right knee pain, unspecified chronicity (Primary Dx); Pain in right foot 09/08/2024 7:00 AM PATIENT CARRIER Therapy [facility] [place] [address] Dipak Mitchell, PT Right knee pain, unspecified chronicity (Primary Dx); Pain in right foot 09/03/2024 7:00 AM PATIENT CARRIER Therapy [facility] [place] [address] Kiana Brandon, SAFETY ASSOCIATE Right knee pain, unspecified chronicity (Primary Dx); Pain in right foot 09/01/2024 7:45 AM PATIENT CARRIER Therapy [facility] [place] [address] Kiana Brandon, SAFETY ASSOCIATE Right knee pain, unspecified chronicity (Primary Dx); Pain in right foot 08/27/2024 5:00 PM PATIENT CARRIER Therapy [facility] [place] [address] Dipak Mitchell, PT Right knee pain, unspecified chronicity (Primary Dx); Pain in right foot 08/19/2024 7:00 AM PATIENT CARRIER Therapy [facility] [address] [place] [address] Dipak Mitchell, PT Right knee pain, unspecified chronicity 08/19/2024 Plan of Care Documentation [facility] [place] [address] from Last 3 Months Social History Tobacco Use Types Packs/Day Years Used Date Smoking Tobacco: Never Assessed Sex and Gender Information Value Date Recorded Sex Assigned at Not on file Legal Sex Male 11:48 AM PATIENT CARRIER Gender Identity Not on file Sexual Orientation [...] on patient's age to complete this topic Procedures Procedure Name Priority Date/Time Associated Diagnosis Comments CARDIOLOGY DOCUMENT SCAN Routine 09/21/2024 3:03 PM PATIENT CARRIER CARDIOLOGY DOCUMENT SCAN 09/21/2024 SCAN - RADIOLOGY/IMAGING 09/21/2024 CARDIOLOGY DOCUMENT SCAN Routine 09/20/2024 2:23 PM PATIENT CARRIER from Last 3 Months Results * Cardiology Document Scan (09/21/2024 3:03 PM PATIENT CARRIER) Anatomical Region Laterality Modality Other us Kary Lewis NP CV CARDIAC SERVICES PROCEDUR ES Final Result * SCAN - RADIOLOGY/IMAGING (09/21/2024) Anatomical Region Laterality Modality Other Yvon sanders Result * Cardiology Document Scan (09/21/2024) Anatomical Region Laterality Modality Other Yvon Szymanski MD CV CARDIAC SERVICES PROCEDURES Final Result * Cardiology Document Scan (09/20/2024 2:23 PM PATIENT CARRIER) Anatomical Region Laterality Modality Other Gregeer Gonzalez Szymanski MD CV CARDIAC SERVICES PROCEDURES Final Result from Last 3 Months Insurance [facility] Care Teams Camouflage Specialist Relationship Specialty Start Date End Date Aron Tinsley PA [address] [place] [address] PCP - General Family Practice 12/31/23
--- OUTSIDE RECORDS SUMMARY | 2024-10-18 03:06 | XMS_ITS | Referral Summary ---
Author Organization [facility] syeda Address [address] [place] [address] Care Team Providers Care Manager Civil Name Role Phone Aron Tinsley Primary Care Provider [phone] Encounters Date Type Department Care Team Description 10/06/2024 7:45 AM CLIENT PORTFOLIO MANAGER Therapy [facility] [place] [address] Dipak Mitchell, PT Right knee pain, unspecified chronicity (Primary Dx); Pain in right foot 10/05/2024 Orders Only [facility] Card[facility] [address] [place] [address] Kary Lewis, ERIKA 10/04/2024 7:00 AM CLIENT PORTFOLIO MANAGER Therapy [facility] [place] [address] Kiana Brandon, JULIANNE Right knee pain, unspecified chronicity (Primary Dx); Pain in right foot 09/27/2024 Orders Only [facility] Medical [facility] Cardiology [address] [place] [address] Yvon Szymanski MD 09/21/2024 Orders Only [facility] [place] Health Information Management [address] [place] [address] Yvon Szymanski MD 09/15/2024 Plan of Care Documentation [facility] [place] [address] 09/15/2024 7:00 AM CLIENT PORTFOLIO MANAGER Therapy [facility] Physical Therapy [facility] [place] [address] Dipak Mitchell, PT Right knee pain, unspecified chronicity (Primary Dx); Pain in right foot 09/13/2024 7:45 AM CLIENT PORTFOLIO MANAGER Therapy [facility] Physical Therapy [facility] [place] [address] Dipak Mitchell, PT Right knee pain, unspecified chronicity (Primary Dx); Pain in right foot 09/10/2024 7:45 AM CLIENT PORTFOLIO MANAGER Therapy [facility] Physical Therapy [facility] [place] [address] Dipak Mitchell, PT Right knee pain, unspecified chronicity (Primary Dx); Pain in right foot 09/08/2024 7:00 AM CLIENT PORTFOLIO MANAGER Therapy [facility] [place] [address] Dipak Mitchell, PT Right knee pain, unspecified chronicity (Primary Dx); Pain in right foot 09/03/2024 7:00 AM CLIENT PORTFOLIO MANAGER Therapy [facility] [place] [address] Kiana Brandon, BILLING COLLECTIONS SPECIALIST Right knee pain, unspecified chronicity (Primary Dx); Pain in right foot 09/01/2024 7:45 AM CLIENT PORTFOLIO MANAGER Therapy [facility] [place] [address] Kiana Brandon, BILLING COLLECTIONS SPECIALIST Right knee pain, unspecified chronicity (Primary Dx); Pain in right foot 08/27/2024 5:00 PM CLIENT PORTFOLIO MANAGER Therapy [facility] [place] [address] Dipak Mitchell, PT Right knee pain, unspecified chronicity (Primary Dx); Pain in right foot 08/19/2024 Plan of Care Documentation [facility] [place] [address] 08/19/2024 7:00 AM CLIENT PORTFOLIO MANAGER Therapy [facility] Physical Therapy - [place] [address] Dipak Mitchell, PT Right knee pain, unspecified chronicity from Last 3 Months Allergies No known active allergies Medications No known medications Active Problems No known active problems Social History Tobacco Use Types Packs/Day Years Used Date Smoking Tobacco: Never Assessed Sex and Gender Information Value Date Recorded Sex Assigned at Not on file Legal Sex Male 11:48 AM CLIENT PORTFOLIO MANAGER Gender Identity Not on file Sexual Orientation Not on file Plan of Treatment Not on file Procedures Procedure Name Priority Date/Time Associated Diagnosis Comments CARDIOLOGY DOCUMENT SCAN Routine 09/21/2024 3:03 PM CLIENT PORTFOLIO MANAGER CARDIOLOGY DOCUMENT SCAN 09/21/2024 SCAN - RADIOLOGY/IMAGING 09/21/2024 CARDIOLOGY DOCUMENT SCAN Routine 09/20/2024 2:23 PM CLIENT PORTFOLIO MANAGER from Last 3 Months Results * Cardiology Document Scan (09/21/2024 3:03 PM CLIENT PORTFOLIO MANAGER) Anatomical Region Laterality Modality Other Kary Lewis NP CV CARDIAC SERVICES PROCEDUR ES Final Result * SCAN - RADIOLOGY/IMAGING (09/21/2024) Anatomical Region Laterality Modality Other Yvon Szymanski MD Leti l Result * Cardiology Document Scan (09/21/2024) Anatomical Region Laterality Modality Other Yvon Szymanski MD CV CARDIAC SERVICES PROCEDURES Final Result * Cardiology Document Scan (09/20/2024 2:23 PM CLIENT PORTFOLIO MANAGER) Anatomical Region Laterality Modality Other Yvon Szymanski MD CV CARDIAC SERVICES PROCEDURES Final Result from Last 3 Months Insurance [facility] Care Teams Manager Civil Relationship Specialty Start Date End Date Aron Tinsley PA [address] [place] [address] PCP - General Family Practice 12/31/23
--- OUTSIDE RECORDS SUMMARY | 2024-10-18 03:06 | XMS_ITS | Clinical Summary ---
Author Organization [facility] Address [address] [place] [address] Phone Care Team Providers Care Operations Research Manager Name Role Phone Provider, None Primary Care [...] on file Legal Sex Male 11:26 AM PUT IN BEAT ADJUSTER Gender Identity Not on file Sexual Orientation Not on file Last Filed Vital Signs Vital Sign Reading Time Taken Comments Blood Pressure 110/70 09/01/2019 3:01 PM PUT IN BEAT ADJUSTER Pulse 59 09/01/2019 3:01 PM PUT IN BEAT ADJUSTER Temperature 36.5 C (97.7 F) 09/01/2019 3:01 PM PUT IN BEAT ADJUSTER Respiratory Rate 14 09/01/2019 3:01 PM PUT IN BEAT ADJUSTER Oxygen Saturation 97% 09/01/2019 3:01 PM PUT IN BEAT ADJUSTER Inhaled Oxygen Concentration - - Weight 101.6 kg (224 lb) 09/01/2019 3:01 PM PUT IN BEAT ADJUSTER Height 172.7 cm (5' 8 ) 09/01/2019 3:01 PM PUT IN BEAT ADJUSTER Body Mass Index 34.06 09/01/2019 3:01 PM PUT IN BEAT ADJUSTER Plan of Treatment Health Maintenance Due Date [...] age to complete this topic Care Teams Operations Research Manager Relationship Specialty Start Date End Date Provider, None [place] PCP - General 09/01/19
[2024-10-18 11:31] LABS: Glucose Point of Care 100 mg/dl (65-105)
[2024-10-18] MEDS: KETOROLAC 15 MG/ML VIAL (*BKC) IV PUSH (11:35)
[2024-10-18] MEDS: LACTATED RINGERS 1,000 ML 30 ML IV CONT (11:35)
[2024-10-18] MEDS: ACETAMINOPHEN 500 MG TABLET 1000 MG PO (11:35)
[2024-10-18 11:46] LABS: Amylase 120 U/L (30-110)
--- NOTE | 2024-10-18 12:43 | P.PNAN_ITS ---
Anes - Initial Pre Proc Eval Procedure: Operation Date: 10/18/24 13:00 Proposed Procedures p Laparoscopic Cholecystectomy, Possible Open - Ruel Juan DO Date/Time: 10/18/24 12:43 Surgeon: Ruel Juan DO Pre Op Diagnosis: biliary dyskinesia Patient Data Age: 64 Gender: M Height: 1.73 m Weight: 108.1 kg Last Vital Signs Temp 97.4 F L 10/18/24 11:35 Pulse 52 L 10/18/24 11:35 Resp 14 10/18/24 11:35 BP 152/77 H 10/18/24 11:35 Pulse Ox 97 10/18/24 11:35 O2 Del Method Room Air 10/18/24 11:35 Allergies Allergy/AdvReac Type Severity Reaction Status Date / Time No Known Allergies Allergy Verified 10/18/24 11:47 Home Medications ?Medication ?Instructions ?Recorded ?Confirmed ?Type losartan 25 mg tablet 25 mg PO DAILY #30 tabs 09/22/24 10/08/24 Rx aspirin 81 mg tablet,delayed 81 mg PO DAILY 10/08/24 10/08/24 History release (Adult Low Dose Aspirin) tadalafil 5 mg tablet (Cialis) 5 mg PO DAILY 10/08/24 10/08/24 History Laboratory Tests 10/18/24 10/18/24 11:27 11:28 POC Capillary Glucose 100 mg/dl (65-105) Amylase 120 H U/L (30-110) Patient hx anesthesia problems: none Family hx anesthesia problems: none Results Review: All pre-operative results and documents have been reviewed as part of the pre- operative evaluation. [facility] Past Medical History Medical History Diabetes mellitus Hypertension Sleep apnea Rotator cuff injury Family History Family History Father Heart attack Mother Sibling Sibling Heart disease Social History Social History Smoking status: Never smoker Second hand tobacco smoke exposure: No Alcohol intake: former Substance use: current Substance use type: marijuana Other substance usage details: Edibles Last use: yesterday Do You Feel Safe in your Home?: Yes Lack of Transportation: No Lack of Food: Never True Current Housing: I Have Housing Concerned About Future Housing: No Difficulty Paying Gas/Electric Bills: No Difficulty Paying for Meds: No Currently Unemployed: No Education: Associate Degree Difficulty w/ Childcare or Family Care: No Living arrangements: with family Occupation/Education: retired Additional occupation/education comments: [email or web address] Gender identity (if verbalized by the patient): Male Spiritual care concerns: No Anes - Eval Final PreProcedure Day of Procedure 10/18/24 12:43 Patient weight: obese Lungs: normal air movement Airway: Mallampati scale class III Neurological: alert and oriented Last oral intake: >/= 8 hours Emergent: no Anesthetic plan: proceed Anesthesia type and monitoring: general ETT and standard monitoring Results Review: All pre-operative results and documents have been reviewed as part of the pre- operative evaluation. HTN, DM fsbs 100, NAVA but not on CPAP, stress test 08/2024 nml, no ischemia, nml LVEF. Informed Consent: The patient's anesthetic plan and its attendant risks and benefits were discussed with the patient/family/POA. Questions were solicited and answers provided to the satisfaction of the patient/family/POA.
--- NOTE | 2024-10-18 13:16 | WPDHPUPDATE1 ---
History and Physical Update Update Date/Time: 10/18/24 13:16 History and Physical has been reviewed, including an updated exam of the patient. There are NO changes in the patient's condition. Risks, benefits, and alternatives have been discussed and questions answered. Patient agrees to proceed with procedure.
[2024-10-18] MEDS: ceFAZolin 2 GM/D5W 50 ML 2 GM/50 ML BAG IVPB (13:34)
[2024-10-18] MEDS: BUPIVACAINE/EPINEPHRINE 0.5% 30 ML VIAL INFILTRATE (13:34)
[2024-10-18 14:49] LABS: Glucose Point of Care 112 mg/dl (65-105)
--- NOTE | 2024-10-18 14:57 | P.OP_ITS ---
Procedure Note - Detailed Date of Procedure 10/18/24 Pre-op Diagnosis biliary dyskinesia Post-op Diagnosis Same Procedure Performed Laparoscopic cholecystectomy Surgeon Ruel Juan, DO Anesthesia General and Local (0.5% bupivacaine) Indications This is a 64-year-old man who presented with intermittent right upper quadrant abdominal pain over the past 4 or 5 months. He had noticed that symptoms started after eating fatty meals. He had a previous gallbladder ultrasound performed which was normal. He then was admitted for worsening symptoms and to rule out cardiac causes. A HIDA scan was performed at that time which showed a gallbladder ejection fraction of 23%. Discussions were made with the patient about treatment options and decision was made to proceed with laparoscopic cholecystectomy, possible open. Findings Laparoscopic cholecystectomy was performed. The gallbladder appeared slightly distended but had no evidence of acute cholecystitis. There were no pericholecystic adhesions. The gallbladder had no evidence of gallstones. The cystic duct appeared normal in size. No other intra-abdominal abnormalities were noted. The gallbladder was removed and sent to the lab for pathology. Description of Procedure Procedure as well as risks, benefits, and alternatives were discussed with patient. Written consent was obtained and placed in chart prior to procedure. The patient was brought back to surgical suite. Patient was placed in supine position on operating table. Time-out was done to confirm patient and procedure. Patient was then intubated by the anesthesia department. Abdomen was prepped and draped in sterile fashion using chlorhexidine prep. 0.5% bupivacaine with epinephrine was infiltrated at each site of incision. A 5 millimeter incision was made near the umbilicus, and a 5 millimeter Optiview trocar was advanced through the abdominal layers under direct visualization. Once inside the abdominal cavity, carbon dioxide was insufflated to create a pneumoperitoneum. The camera was inserted and the abdomen was inspected. No immediate abnormalities were identified. The patient was placed in reverse Trendelenburg position and rotated slightly to the left. An 11 millimeter incision was made in the subxiphoid region, and an 11 millimeter trocar was inserted under direct visualization. Two 5 millimeter incisions were made in the right upper quadrant, and two 5 millimeter trocars were inserted under direct visualization. The gallbladder was identified and grasped at the fundus and retracted superiorly. It was then grasped at the infundibulum retracted laterally. Careful dissection around the neck of the gallbladder was performed using blunt dissection with a [place] grasper and hook electrocautery. The cystic duct was identified, and a window was created behind it. The cystic artery was also identified and a window was created behind it. The critical view of safety was identified, visualizing the cystic duct running directly into the neck of the gallbladder, and the cystic artery running directly into the wall of the gallbladder. A 5 millimeter clip program research specialist was then used to place 2 clips proximally and 1 clip distally on both the cystic duct and cystic artery. They were then both transected using endoscopic scissors. Once safely away from the bernadine hepatitis, the gallbladder was dissected free from the liver bed using hook electrocautery. Hemostasis was achieved along the way. The gallbladder was removed completely and then removed through the subxiphoid port. The liver bed was then inspected. Hemostasis appeared adequate, and our clips appeared secure. The area was gently irrigated with sterile saline. No other abnormalities were seen. The patient was flattened out in bed, and 1 final inspection was made around the abdominal cavity. The subxiphoid port was removed, and a Jah Cinthia cone was used to approximate the fascia with an 0-Vicryl simple interrupted suture. The remaining ports were then removed under direct visualization, the camera was removed, and the pneumoperitoneum was released. The skin of the incisions was approximated using 4-0 Monocryl subcuticular sutures. Exofin glue was applied on top. The patient was then awakened from anesthesia, extubated, and transferred to recovery. Estimated Blood Loss 10 Pathology Yes (Gallbladder) Complications No immediate complications Condition Stable Disposition Same day [facility] Billing Surgery - Charge Forward: Surgery Billing
== END 2024-10-18 16:14 | disposition home or self-care (01) ==
PROVIDERS: PCP Physician Assistant; Visit Provider Surgery
PROC: 0FT44ZZ Resection of Gallbladder, Percutaneous Endoscopic Approach (ICD-10-PCS; CPT 47562; principal; 2024-10-18 13:00)
DX: K80.50 Calculus of bile duct without cholangitis or cholecystitis without obstruction (principal); I10 Essential (primary) hypertension; E11.9 Type 2 diabetes mellitus without complications; G47.33 Obstructive sleep apnea (adult) (pediatric); F12.90 Cannabis use, unspecified, uncomplicated; E66.9 Obesity, unspecified; Z68.36 Body mass index [BMI] 36.0-36.9, adult; Z79.82 Long term (current) use of aspirin; Z82.49 Family history of ischemic heart disease and other diseases of the circulatory system
CPT/HCPCS: 47562; 36415; 82150; 82948; 88304; A9270; J0690; J1100; J1596; J1885; J2003; J2405; J2704; J3010; J7120

== ENCOUNTER 2024-12-22 07:03 | Outpatient (CLI) | payer OTHER, SELFPAY ==
--- NOTE | ~2024-12-22 | MR_ITS ---
MRI of the brain Clinical History: Asymmetric sensorineural hearing loss Technique: Axial and sagittal T1-weighted images were acquired. These were followed by axial T2-weigh criss, diffusion weighted, gradient, and FLAIR images. Thin cut coronal and axial T1-weighted and T2-we ighted images were acquired through the internal auditory canals. Following intravenous administratio n of 20 cc ProHance gadolinium, T1-weighted fat-sat imaging was performed through the brain in the ax ial and coronal planes. Thin cut axial and coronal T1-weighted postcontrast imaging was also performe d through the internal auditory canals. Findings: No significant signal abnormality seen in the brain parenchyma. No acute infarct, intracran ial hemorrhage, or mass lesion. Ventricles and subarachnoid spaces are unremarkable. Orbits are unremarkable. Paranasal sinuses and m astoid air cells are clear. Major intracranial flow voids are intact. Sagittal midline structures are intact. No abnormal mass lesion seen at the internal auditory canals or CP angle regions. No abnormal postcontrast enhancement identified. IMPRESSION:: Unremarkable exam. Reviewed, dictated and finalized at location M. IMPRESSION:: Unremarkable exam.
--- OUTSIDE RECORDS SUMMARY | 2024-12-22 07:10 | XMS_ITS | Clinical Summary ---
Author Organization [facility] Address [address] [place] [address] Phone Care Team Providers Care Gas Processing Plant Operator Name Role Phone Provider, None Primary [...] on file Legal Sex Male 11:26 AM DOCUMENTATION ENGINEER Gender Identity Not on file Sexual Orientation Not on file Last Filed Vital Signs Vital Sign Reading Time Taken Comments Blood Pressure 110/70 09/01/2019 3:01 PM DOCUMENTATION ENGINEER Pulse 59 09/01/2019 3:01 PM DOCUMENTATION ENGINEER Temperature 36.5 C (97.7 F) 09/01/2019 3:01 PM DOCUMENTATION ENGINEER Respiratory Rate 14 09/01/2019 3:01 PM DOCUMENTATION ENGINEER Oxygen Saturation 97% 09/01/2019 3:01 PM DOCUMENTATION ENGINEER Inhaled Oxygen Concentration - - Weight 101.6 kg (224 lb) 09/01/2019 3:01 PM DOCUMENTATION ENGINEER Height 172.7 cm (5' 8 ) 09/01/2019 3:01 PM DOCUMENTATION ENGINEER Body Mass Index 34.06 09/01/2019 3:01 PM DOCUMENTATION ENGINEER Plan of Treatment Health Maintenance Due Date [...] age to complete this topic Care Teams Gas Processing Plant Operator Relationship Specialty Start Date End Date Provider, None [place] PCP - General 09/01/19
--- OUTSIDE RECORDS SUMMARY | 2024-12-22 07:10 | XMS_ITS | Referral Summary ---
Author Organization [facility] Address [address] [place] [address] Care Team Providers Care Master Brewer Name Role Phone Aron Tinsley Primary Care Provider [phone] Encounters Date Type Department Care Team Description 12/17/2024 9:00 AM CDT Office Visit [facility] [address] [place] [address] [address] [place] [id number] Fidencio Mendoza MD Severe obstructive sleep apnea (Primary Dx); Hypersomnia with sleep apnea; Severe obesity (BMI 35.0-35.9 with comorbidity) ([facility]) 10/29/2024 10:45 AM HALL MONITOR Office [place] [facility] [address] [place] [phone] Fidencio Mendoza MD Hypersomnia with sleep apnea (Primary Dx); NAVA (obstructive sleep apnea); Severe obesity (BMI 35.0-35.9 with comorbidity) ([facility]) 10/06/2024 7:45 AM HALL MONITOR Therapy [facility] [place] [address] Dipak Mitchell, ED Right knee pain, unspecified chronicity (Primary Dx); Pain in right foot 10/05/2024 Orders Only [facility] Card[facility] [address] [place] [phone] Kary Lewis NP 10/04/2024 7:00 AM HALL MONITOR Therapy [facility] [place] [address] Kiana Brandon, PIECE JOBBER Right knee pain, unspecified chronicity (Primary Dx); Pain in right foot 09/27/2024 Orders Only [facility] [address] [place] [address] Yvon Szymanski MD from Last 3 Months Allergies No known active allergies Medications losartan (COZAAR) 25 mg tablet Take 1 tablet (25 mg total) by mouth daily 10/20/2024 Active tadalafiL (CIALIS) 20 mg tablet Take 1 tablet (20 mg total) by mouth as needed 06/22/2020 Active aspirin 81 mg enteric coated tablet Take 1 tablet (81 mg total) by mouth daily Active Active Problems Problem Noted Date Diagnosed Date Severe obstructive sleep apnea 12/17/2024 Hypersomnia with sleep apnea 12/17/2024 Severe obesity (BMI 35.0-35.9 with comorbidity) 12/17/2024 Social History Tobacco Use Types Packs/Day Years Used Date Smoking Tobacco: Never Tobacco Cessation:Counseling Given: Not Answered Sex and Gender Information Value Date Recorded Sex Assigned at Not on file Legal Sex Male 11:48 AM HALL MONITOR Gender Identity Not on file Sexual Orientation Not on file Last Filed Vital Signs Vital Sign Reading Time Taken Comments Blood Pressure 134/75 12/17/2024 9:08 AM CDT Pulse 49 12/17/2024 9:08 AM CDT Temperature - - Respiratory Rate - - Oxygen Saturation 94% 12/17/2024 9:08 AM CDT Inhaled Oxygen Concentration - - Weight 106.2 kg (234 lb 3.2 oz) 12/17/2024 9:08 AM CDT Height 172.7 cm (5' 7.99 ) 12/17/2024 9:08 AM CD T Body Mass Index 35.62 12/17/2024 9:08 AM CDT Plan of Treatment Not on file Insurance [facility] Care Teams Master Brewer Relationship Specialty Start Date End Date Aron Tinsley PA [address] [place] [address] PCP - General Family Practice 12/31/23
--- OUTSIDE RECORDS SUMMARY | 2024-12-22 07:10 | XMS_ITS | Clinical Summary ---
Author Organization [facility] [place] Address [address] [place] [address] Care Team Providers Care Reactor Technician Name Role Phone Aron Tinsley Primary Care Provider [phone] Allergies No known active allergies Medications losartan [...] Severe obesity (BMI 35.0-35.9 with comorbidity) 12/17/2024 Encounters Date Type Department Care Team Description 12/17/2024 9:00 AM CDT Office Visit [facility] [address] [place] [address] [address], [place] [phone] Fidencio Mendoza MD Severe obstructive sleep apnea (Primary Dx); Hypersomnia with sleep apnea; Severe obesity (BMI 35.0-35.9 with comorbidity) ([facility]) 10/29/2024 10:45 AM CHAPER[place] Office Visit [facility] [address] [place] [address] [address] [place] [address] Fidencio Mendoza MD Hypersomnia with sleep apnea (Primary Dx); NAAV (obstructive sleep apnea); Severe obesity (BMI 35.0-35.9 with comorbidity) ([facility]) 10/06/2024 7:45 AM CHAPERON Therapy [facility] [place] [address] [place] [address] Dipak Mitchell, PT Right knee pain, unspecified chronicity (Primary Dx); Pain in right foot 10/05/2024 Orders Only [facility] Medical [facility] [address] [place] [phone] Kary Lewis, ERIKA 10/04/2024 7:00 AM CHAPERON Therapy [facility] [place] [address] [place] [address] Kiana Brandon, REINFORCED IRONWORKER Right knee pain, unspecified chronicity (Primary Dx); Pain in right foot 09/27/2024 Orders Only [facility] [address] [place] [phone] Yvon Szymanski MD from Last 3 Months Surgical History Surgery Date Site/Laterality Comments CHOLECYSTECTOMY 10/25/2024 Social History Tobacco Use Types Packs/Day Years Used Date Smoking Tobacco: Never Tobacco Cessation:Counseling Given: Not Answered Sex and Gender Information Value Date Recorded Sex Assigned at Not on file Legal Sex Male 11:48 AM CHAPERON Gender Identity Not on file Sexual Orientation Not on file Obstetrics History Last Filed Vital Signs Vital Sign Reading [...] 12/17/2024 9:08 AM CDT Plan of Treatment Health Maintenance Due Date Last Done Comments Colon Cancer Screening-Colonoscopy 1961 Depression Screening 1961 Hepatitis C Screening 1961 Prostate Cancer Screening-PSA 1961 DTaP/Tdap/Td Vaccine (1 - Tdap) 1972 Hepatitis B Screening 1979 Regular Well Visit/Exam 18-64 1979 Zoster Vaccine (1 of 2) 2011 Influenza Vaccine (Season Ended) 2025 Pneumococcal vaccine <65 Aged Out No longer eligible based on patient's age to complete this topic Insurance [facility] Care Teams Reactor Technician Relationship Specialty Start Date End Date Aron Tinsley PA [address] [place] [address] PCP - General Family Practice 12/31/23
--- OUTSIDE RECORDS SUMMARY | 2024-12-22 07:10 | XMS_ITS | Data Portability ---
Author Organization [facility] Address [address] [place] [address] Care Team Providers Care Hydropulper Name Role Phone ELIUD TINSLEY Primary Care Provider Assessment No assessment recorded. Plan of Treatment Reminders Order Date Submit Date Provider Last Modified By Organization Details Last Modified Time Details Appointments None recorded. Lab None recorded. Referral audiologis t referral 2024 025 [facility], [address] [place], [address], 5 15:21:06 physical therapist referral 2023 024 [facility], [address], [place], [address], 5 13:18:11 chief deputy sheriff referral 2023 024 [place] [facility], [address], [address], [place], [address], 4 06:35:22 Procedures None recorded. Surgeries None recorded. Imaging US, luis enrique hartman 2023 024 [facility], [address], [place], [address], 4 10:03:16 home sleep study 2023 024 [facility] [address], [place], [address], 5 15:26:18 XR, knee 2023 024 [facility], [address], [place], [address], 4 14:26:05 XR, foot 2023 024 [facility], [address], [place], [address], 4 16:16:56 Medication Orders losartan 25 mg tablet 2024 025 [place] [id number], [address], [place], [place], [id number], 5 11:29:29 naproxen 500 mg tablet 2023 025 [place] [id number], [address], [place], [place], [id number], 5 15:30:31 Patient TargetsNo targets recorded. Patient Instructions Encounter Date Encounter Id Patient Instructions Last Modified By Organization Details Last Modified Time 07/05/2024 [id number] sleep apnea: car e instructions jnanney Not available 07/05/2024 11:55:50 A healthy lifestyle: care instructions jnanney Not available 07/05/2024 11:55:47 07/26/2024 [id number] A healthy lifestyle: care instructions jnanney Not available 07/26/2024 12:19:15 09/24/2024 [id number] A healthy lifestyle: care instructions jnanney Not available 09/24/2024 11:26:31 learning about high blood pressure jnanney Not available 09/24/2024 11:29:24 10/14/2024 [id number] A healthy lifestyle: care instructions jnanney Not available 10/14/2024 12:15:09 11/26/2024 [id number] A healthy lifestyle: care instructions jnanney Not available 11/26/2024 16:06:52 learning about high blood pressure jnanney Not available 11/26/2024 16:06:52 Reason for Referral Physical Therapist Referral for Pain of right knee joint Referring Physician: Eliud Tinsley [facility], Encounter Date: 07/26/2024 [employer] Transactions Attorney Referral for Pain in left foot Referring Physician: Eliud Tinsley [facility], Encounter Date: 07/26/2024 Veterinary Dentist Referral for Atif ateral tinnitus Referring Physician: Eliud Tinsley [facility], Encounter Date: 10/14/2024 Results Created Date Observation Date Name Description Value Unit Range Abnormal Flag Note LastModifiedBy Organization Detail LastModifiedTime 07/06/20 24 07/06/2024 XR, knee No observ ation record ed. [address], [address], 07/07/2024 09:00:35 07/06/20 24 07/06/2024 XR, foot No observ ation record ed. [address] [facility], [place], [address], 07/07/2024 09:00:35 08/13/20 24 08/13/2024 subhash HAUSER No observ ation record ed. [address], [address], 08/13/2024 15:52:52 09/03/19 25 09/02/2024 home sleep study No observ ation record ed. [address], [address], 09/06/2024 10:47:17 09/06/19 25 09/02/2024 home sleep study No observ ation record ed. [facility] [address], [place], [address], 09/06/2024 12:00:44 09/20/19 25 09/20/2024 CT, abdom en + pelvi s, w/o contr ast No observ ation record ed. [address], [place], [address], 09/20/2024 08:46:31 09/20/19 25 09/20/2024 XR, chest No observ ation record ed. [address], [place], [address], 09/20/2024 08:47:09 09/21/19 25 09/21/2024 exerc ise stres s test No observ ation record ed. [address] [address], [place], [address], 09/21/2024 15:58:54 09/21/19 25 09/21/2024 exerc ise stres s test No observ ation record ed. [address] [facility], [place], [address], 09/21/2024 19:37:32 09/22/19 25 09/21/2024 exerc ise stres s echoc ardio gram No observ ation record ed. [address], [place], [address], 09/22/2024 10:33:35 09/22/1909/22/2024 NM, hepat obili angeles scan No observ ation record ed. [address], [place], [address], 09/22/2024 12:10:07 Result Notes None recorded. Procedures Surgical History Date Name Laterality Status Provider Name and Address Organization Details Recorded Time 10/18/19 Cholecystectomy completed Tracie Fleming MA [facility] 10/19/2024 09:37:16 partial repair of rotator cuff completed Mandi Diaz MA [facility] 12/30/2023 10:01:10 Imaging Results Imaging Date Name Status LastModified by Organization Details LastModified Time 07/06/2024 XR, knee completed [address], [place], [address], 07/07/2024 09:00:35 07/06/2024 XR, foot completed [address], [place], [address], 07/07/2024 09:00:35 08/13/2024 US, gallbladder completed [address], [place], [address], 08/13/2024 15:52:52 09/02/2024 home sleep study completed [address], [place], [address], 09/06/2024 10:47:17 09/02/2024 home sleep study completed [facility] [address], [place], [address], 09/06/2024 12:00:44 09/20/2024 CT, abdomen + pelvis, w/o contrast completed [address], [place], [address], 09/20/2024 08:46:31 09/20/2024 XR, chest completed [address], [place], [address], 09/20/2024 08:47:09 09/21/2024 exercise stress test completed [address], [place], [address], 09/21/2024 15:58:54 09/21/2024 exercise stress test completed [address], [place], [address], 09/21/2024 19:37:32 09/21/2024 exercise stress echocardiogram completed [address], [place], [address], 09/22/2024 10:33:35 09/22/2024 NM, hepatobiliary scan completed [facility] [address], [place], [address], 09/22/2024 12:10:07 Procedure Notes None recorded. Medical Equipment None Reported. Allergies No known drug allergies Medications Name Sig Start Date Stop Date Status Note LastModified by Organization Details LastModified Time hydrocodone 5 mg-acetamino phen 325 mg tablet TAKE 1 TABLET BY MOUTH EVERY 4 HOURS NEEDED FOR PAIN 11/26 completed Not Available Not Available Not Available lisinopril 20 mg tablet Take 1 tablet every day by oral route for 90 days. 01/22 completed Not Available Not Available Not Available aspirin 81 mg tablet,delay ed release Take 1 tablet every day by oral route. active Not Available Not Available No t Available losartan 25 mg tablet TAKE 1 TABLET BY MOUTH EVERY DAY active Not Available Not Available No t Available naproxen 500 mg tablet Take 1 tablet twice a day by oral route for 90 days. 11/26 completed Not Available Not Available Not Available ciprofloxaci n 0.3 %-dexamethas one 0.1 % ear drops,suspen raul INSTILL 4 DROPS INTO THE LEFT EAR TWICE DAILY FOR 7 DAYS 11/26 completed Not Available Not Available Not Available tadalafil 5 mg tablet Take 1 tablet every day by oral route. active Not Available Not Available No t Available Cialis 10 mg tablet Take 1 tablet every day by oral route. 11/26 completed Not Available Not Available Not Available Vitals Date Recorded Body height Body mass index (BMI) Body weight Oxygen saturation Oxygen saturation in Arterial blood by Pulse oximetry Heart rate Systolic blood pressure Diastolic blood pressure Provider Name and Address Organization Details Last Updated DateTime 4 172.72 cm 38.5 kg/m2 871049. 87 g 95 % 95 % 56 /min 150 mm[Hg] 90 mm[Hg] Tracie Fleming [place] [facility] 4 11:29:02 Date Recorded Body height Body mass index (BMI) Body weight Oxygen saturation Oxygen saturation in Arterial blood by Pulse oximetry Heart rate Systolic blood pressure Diastolic blood pressure Provider Name and Address Organization Details Last Updated DateTime 4 172.72 cm 38.2 kg/m2 862494. 08 g 98 % 98 % 59 /min 158 mm[Hg] 92 mm[Hg] Mandi Diaz MA [facility] 4 11:59:40 Date Recorded Body height Body mass index (BMI) Body weight Oxygen saturation Oxygen saturation in Arterial blood by Pulse oximetry Heart rate Systolic blood pressure Diastolic blood pressure Provider Name and Address Organization Details Last Updated DateTime 5 172.72 cm 36.9 kg/m2 040599. 95 g 97 % 97 % 56 /min 136 mm[Hg] 88 mm[Hg] Tracie Fleming MA [facility] 5 11:10:28 Date Recorded Body height Body mass index (BMI) Body weight Oxygen saturation Oxygen saturation in Arterial blood by Pulse oximetry Heart rate Respiratory rate Systolic blood pressure Diastolic blood pressure Provider Name and Address Organization Details Last Updated DateTime 5 172.72 cm 36.8 kg/m2 388071. 35 g 95 % 95 % 75 /min 16 /min 130 mm[Hg] 72 mm[Hg] Roma Parish MA [facility] 5 11:57:50 Date Recorded Body height Body mass index (BMI) Body weight Oxygen saturation Oxygen saturation in Arterial blood by Pulse oximetry Heart rate Systolic blood pressure Diastolic blood pressure Provider Name and Address Organization Details Last Updated DateTime 5 172.72 cm 35.1 kg/m2 853242. 84 g 96 % 96 % 59 /min 128 mm[Hg] 60 mm[Hg] Tracie Fleming MA [facility] 5 15:33:08 Social History Question Answer Notes LastModified by Organizat ion Details LastModified Time Tobacco Smoking Status Never Smoker Mandi Diaz MA null, [facility] 12/30/2023 10:00:13 What Is Your Level Of Alcohol Consumption? None Information not available 12/30/2023 Are You Blind Or Do You Have Difficulty Seeing? No Information not available 12/30/2023 What Is Your Level Of Caffeine Consumption? Moderate Information not available 09/24/2024 Are You Currently Employed? No Retired Information not available 12/30/2023 Are You Deaf Or Do You Have Serious Difficulty Hearing? No Information not available 12/30/2023 What Type Of Diet Are You Following? REGULAR Information not available 12/30/2023 What Was The Date Of Your Most Recent Tobacco Screening? 11/26/2024 Information not available 11/26/2024 How Many Children Do You Have? -1 [...] Anxious, Or Unable To Sleep At Night)? [id number] Information not available 12/30/2023 Do You Use [...] Problems N Kidney or Bladder Problems N GI Problems N Depression N COPD N Blood Clots N Skin Problems N Eating Disorder N Anemia N Heart Attack (NC) N Diabetes N Anxiety Disorder N Muscle, Joint, or Bone Problems N Seizures/Epilepsy N Arthritis N Acid Reflux (GERD) N Cancer N Stroke N Asthma N Allergies N ADHD N Substance Abuse N High Cholesterol N Hepatitis N Liver Disease N Schizophrenia N Headaches N Osteoporosis N Heart Failure N Past Encounters Encounter ID Performer Location Encounter Start Date Encounter Closed Date Diagnosis/Indication Diagnosis SNOMED-CT Code Diagnosis ICD10 Code Diagnosis Note [id number] Eliud Tinsley PA-C [facility] [address] [place] [address] 12/30/2023 09:42:15 12/31/2023 12:30:25 Essential hypertension 92690476 I10 Pain of ri ght shoulder joint 1168256799 5143620 M25.511 Family his tory of Myocardial infarction 859871864 Z82.49 Overweight 386918109 E66 .3 Dyspnea on exertion 6084 5006 R06.09 [id number] Eliud Tinsley PA-C [facility] [address] [place] [address] 01/23/2024 10:40:41 01/28/2024 14:54:42 Pain of right shoulder joint 3431037413 7339157 M25.511 Essential hypertension 30344732 I10 refuses meds Screening for malignant neoplasm of prostate 630402643 Z12.5 Screening for malignant neoplasm of colon 165920504 Z12.11 Overweight 781709575 E66 .3 [id number] Eliud Tinsley PA-C [facility] [address] [place] [address] 07/05/2024 10:55:42 07/07/2024 08:41:31 Pain of right knee joint 1851874563 72628 M25.561 Pain in left foot 525946 4128 38622 M79.672 Overweight 161527605 E66 .3 Obstructiv e sleep apnea syndrome 50961366 G47.33 [id number] Eliud Tinsley PA-C [facility] [address] [place] [address] 07/26/2024 11:48:20 07/28/2024 15:16:08 Right upper quadrant pain 467204173 R10.11 Pain of ri ght knee joint 1968161265 21275 M25.561 Pain in left foot 107141 8939 97365 M79.672 Overweight 303127269 E66 .3 [id number] Eliud Tinsley PA-C [facility] [address] [place] [address] 09/24/2024 10:50:39 09/28/2024 11:22:30 Cholelithiasis without obstruction 08011468 K80.20 Overweight 107208800 E66 .3 Essential hypertension 13859051 I10 [id number] Eliud Tinsley PA-C [facility] [address] [place] [address] 10/14/2024 11:41:20 10/18/2024 10:50:20 Bilateral tinnitus 5839157241 102 H93.13 Overweight 388721233 E66 .3 [id number] Eliud Tinsley PA-C [facility] [address] [place] [address] 11/26/2024 15:22:51 11/29/2024 16:17:10 Essential hypertension 22417102 I10 doing well...ivette ght loss efforts are helping Overweight 610499972 E66 .3 Health Concerns Section Related Observation LastModified by Organization Detai ls LastModified Time None Recorded Concern Status LastModified by Organization Details LastModified Time None Recorded Advance Directives Directive None Recorded Payers Encounter Date Sequence Insurance Name Policy Number Policy Fox Covered Member ID Fox Member ID Guarantor Name 07/05/2024 1 [facility] ON OR AFTER 02/22/21 (MEDICAID REPLACEMENT - HMO) Joe Chávez [id number] Joe Chávez 07/26/2024 1 [facility] ON OR AFTER 02/22/21 (MEDICAID REPLACEMENT - HMO) Joe Chávez [id number] Joe Chávez 09/24/2024 1 [facility] ON OR AFTER 02/22/21 (MEDICAID REPLACEMENT - HMO) Joe Chávez [id number] Joe Chávez 10/14/2024 1 [facility] ON OR AFTER 02/22/21 (MEDICAID REPLACEMENT - HMO) Joe Chávez [id number] Joe Chávez 11/26/2024 1 [facility] ON OR AFTER 21 (MEDICAID REPLACEMENT - HMO) Joe Chávez [id number] Joe Chávez Notes Date Note Type Note Provider Name and Address Organization Details Recorded Time 07/05/2024 text/html rt knee pain and left foot pain...foot forever and knee last 3 weeks...spontaneou s onset.. no known injury...no xrays on foot...was told plantar fasciitis once but this isnt same..hurts in arch and up ankle..was hiking alot and wseemed to inflame it...has been climbindg a ladder alot and wonders if that is the knee problem.. Eliud Tinsley PA-C Attn: Accounting, [address] [place], [address], [facility] 07/05/2024 11:55:55 07/26/2024 text/html gets sick when h e eats approx 30 minutes...rt side with yellow bile...also discuss foot and knee xrays...has been a boat laborer for 40 years...steps are worse...rt knee and left foot...foot doesnt feel like plantar fasciitis...has seen podiatry but not for this particular pain medial aspect... Eliud Tinsley PA-C Attn: Accounting, [address] [place], [address], [facility] 07/26/2024 12:20:28 09/24/2024 text/html ER vs gallbladder but did not recieve HIDA went to ER was cleared for cardio and resulted in gallbladder and having surgery upcoming Eliud Tinsley PA-C Attn: Accounting, [address] [place], [address], [facility] 09/24/2024 11:29:43 10/14/2024 text/html used a chipping hammer for years in the [place]..now has ringing in his ears.. 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
== END 2024-12-22 07:04 | disposition home or self-care (01) ==
PROVIDERS: PCP Physician Assistant; Visit Provider Nurse Practitioner Family
DX: H90.5 Unspecified sensorineural hearing loss (principal)
CPT/HCPCS: 70553; A9579

== ENCOUNTER 2025-06-20 13:16 | Outpatient (CLI) | payer OTHER, SELFPAY ==
--- NOTE | ~2025-06-20 | XR_ITS ---
EXAMINATION: XR knee RT min 4V, 06/20/2025 13:30 CDT HISTORY: pain in right knee COMPARISON: No comparisons available. Findings: No acute fracture or malalignment. Moderate tricompartmental degenerative changes Soft tissues unremarkable. Impression: No acute fracture or malalignment. Reviewed, dictated and finalized at location P. Impression: No acute fracture or malalignment.
--- OUTSIDE RECORDS SUMMARY | 2025-06-20 08:00 | XMS_ITS | Encounter Summary ---
Author Organization [facility] Healthcare Address [address] [place] [address] Care Team Providers Care Shipping Services Sales Representative Name Role Phone Aron Tinsley Primary Care Provider [phone] Becca Hamilton RN Unavailable [phone] Nataly Adams RN Unavailable [phone] Encounter Details Date Type Department Care Team (Late st Contact Info) Description 06/20/2025 8:00 AM CDT Office Visit [facility] [address] [place] [address] Fidencio Mendoza MD [address] [place] [address] [address] [place] [address] Severe obstructive sleep apnea (Primary Dx); Hypersomnia with sleep apnea; Severe obesity (BMI 35.0-35.9 with comorbidity) (HCC) Social History Tobacco Use Types Packs/Day Years Used Date Smoking Tobacco: Never Sex and Gender Information Value Date Recorded Sex Assigned at Not on file 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 Severe obstructive sleep disorder breathing: Mr. Chávez is seen in follow up regarding the above condition. He is a very pleasant 64 year old gentleman with recent diagnosis of severe sleep disorder breathing with a baseline AHI 95.3 who following his last visit set up with automatic positivepressure therapy. Endorses compliance with therapy. He goes to bed at 11:30 p.m., and awakens at 6 a.m.. Takes 10-15 minutes to fall asleep awakens once or twice to go to the restroom awakens rested 2. Hypersomnia with sleep apnea: Endorses improvement still persistent daytime sleepiness Merriman Sleepiness scale score is 10 3. Severe obesity: Stable weight since last visit Review of Systems BP 153/63 Pulse 54 Ht 172.7 cm (5' 7.99) Wt 111.3 kg (245 lb 6.4 oz) SpO2 96% BMI 37.32 kg/m?? Physical Exam Constitutional: Pleasant gentleman no distress HENT: Head: Normocephalic and atraumatic. Mouth/Throat: Oropharynx is clear and moist. Eyes: Conjunctivae and EOM are normal. eye exhibits no discharge. No scleral icterus. Neck: Normal range of motion. Neck supple. No thyromegaly present. Cardiovascular: Normal rate, regular rhythm and normal heart sounds. Exam reveals no gallop and no friction rub. No murmur heard. Pulmonary/Chest: Effort normal and breath sounds normal. No respiratory distress. has no wheezes. has no rales. Exhibits no tenderness. Abdominal: Soft. exhibits no distension and no mass. There is no tenderness. Musculoskeletal: Normal passive range of movements; no muscle tenderness Neurological: Alert and oriented to person, place, and time. No cranial nerve deficit. Exhibits normal muscle tone. Skin: Skin is warm. No rash noted. No erythema. Psychiatric: normal mood and affect. Judgment mile AP 1. Severe Obstructive sleep apnea syndrome: Endorses compliance with positive pressure therapy. Compliance download reveals compliance and effective therapy. Advised to continue compliance positive pressure therapy. Patient is still complains of leakage from mask. Also complains of snoring. Discussed that to eliminate snoring, may have to bump up his pressure. Patient declines to undergo the above changes. Continue with the present settings The physiology of sleep disordered breathing and its increased association with hypertension, diabetes, heart arrhythmia, strokes, heart attacks, heart failure, hypersomnia, obesity and mood disorders was discussed. Verbalizes understanding Patient's compliance download from 05/18/2025-06/16/2025 was reviewed. 100% usage averaging 6 hoursand 49 minutes of therapy residual AHI 4.2. 2. Hypersomnia with sleep apnea: Improving. Still ESS 10. Continue to monitor with the improved andcontinued compliance with positive pressure therapy. 3. Severe obesity: Stable weight since last visit documented in this encounter Plan of Treatment Not on file documented as of this encounter Visit Diagnoses Diagnosis Severe obstructive sleep apnea- Primary Hypersomnia with sleep apnea Hypersomnia with sleep apnea, unspecified Severe obesity (BMI 35.0-35.9 with comorbidity) ([facility]) documented in this encounter Care Teams Shipping Services Sales Representative Relationship Specialty Start Date End Date Aron Tinsley PA [address] [place] [address] PCP - General Family Practice 12/31/23 Becca Hamilton RN [address] [place] [address] Associate Account Manager 04/18/25 Nataly Adams RN [address] [place] [address] Independent Living Donor Advocate 04/26/25 documented as of this encounter
--- OUTSIDE RECORDS SUMMARY | 2025-06-20 14:51 | XMS_ITS | Clinical Summary ---
Author Organization [facility] Address [address] [place] [address] Care Team Providers Care Mental Health Professional Name Role Phone Aron Tinsley Primary Care Provider [phone] Becca Hamilton RN Unavailable [phone] Nataly Adams RN Unavailable [phone] Allergies No known active allergies Medications losartan [...] Encounters Date Type Department Care Team Description 06/20/2025 8:00 AM CDT Office Visit [facility] [address] [place] [address] Fidencio Mendoza MD Severe obstructive sleep apnea (Primary Dx); Hypersomnia with sleep apnea; Severe obesity (BMI 35.0-35.9 with comorbidity) ([facility]) 06/13/2025 Telephone [facility] [address] [phone] [place] [address] Becca Hamilton, RN 06/13/2025 Telephone [facility] [address][phone] [place] [address] Joanna Al 06/07/2025 Telephone [facility] [address] [place] [address] Becca Hamilton, RN 04/28/2025 Telephone [facility] [address] [place] [address] Nataly Adams, LORI Donor Evaluation Update/Follow Up 04/27/2025 Telephone [facility] [address] [place] [address] Nataly Adams, LORI Donor Evaluation Update/Follow Up 04/22/2025 Telephone [facility] [address] [place] [address] Becca Hamilton, RN 04/22/2025 Telephone [facility] [address] [place] [address] Becca Hamilton, RN 04/18/2025 Documentation [facility] [address] [phone] [place] [address] Joanna Al. Referral - Donor Txp 04/18/2025 Documentation [facility] [address][phone] [place] [address] Joanna Al 04/11/2025 Documentation [facility] [address] [phone] [place] [address] Emi Huertas 04/08/2025 Documentation [facility] [address] [phone] [place] [address] Joanna Al 04/08/2025 Documentation [facility] [id number] [place] [address] Joanna Al 04/08/2025 Telephone [facility] [id number] [place] [address] Joanna Al Referral - Donor Txp from Last 3 Months Surgical History Surgery Date Site/Laterality Comments CHOLECYSTECTOMY 10/25/2024 ROTATOR CUFF REPAIR 08/25/1999 - 08/24/2000 N/A CARPAL TUNNEL RELEASE N/A x2 HERNIA REPAIR N/A Medical History Medical History Date Comments HL (hearing loss) Hypertension Sleep apnea Tinnitus Family History Medical History Relation Name Comments Heart disease Brother Heart disease Father Heart disease Sister Relation Name Status Comments Brother Father Sister Social History Tobacco Use Types Packs/Day Years Used Date Smoking Tobacco: Never Tobacco Cessation:Counseling Given: Not Answered Sex and Gender Information Value Date Recorded Sex Assigned at Not on file Legal Sex Male 11:48 AM REED MAN Gender Identity Not on file Sexual Orientation [...] Mass Index 37.32 06/20/2025 7:55 AM CDT Plan of Treatment Health Maintenance Due Date Last Done Comments Colon Cancer Screening-Colonoscopy 1961 Depression Screening 1961 Hepatitis C Screening 1961 Prostate Cancer Screening-PSA 1961 DTaP/Tdap/Td Vaccine (1 - Tdap) 1972 Hepatitis B Screening 1979 Regular Well Visit/Exam 18-64 1979 Zoster Vaccine (1 of 2) 2011 Influenza Vaccine (#1) 2025 Pneumococcal vaccine <65 Aged Out No longer eligible based on patient's age to complete this topic Insurance [facility] Care Teams Mental Health Professional Relationship Specialty Start Date End Date Aron Tinsley PA [address] [place] [address] PCP - General Family Practice 12/31/23 Becca Hamilton, LORI [address] [place] [address] Information Systems Security Specialist 04/18/25 Nataly Adams RN [address] [place] [address] Independent Living Donor Advocate 04/26/25
--- OUTSIDE RECORDS SUMMARY | 2025-06-20 14:51 | XMS_ITS | Clinical Summary ---
Author Organization [facility] Address [address] [place] [address] Phone Care Team Providers Care 3D Animator Name Role Phone AliyahAron noe Primary Care Provider [phone] Allergies No known active allergies Medications tadalafil (CIALIS) 20 MG TabletIndications: Erectile dysfunction due to arterial insufficiency Take 1 Tab by mouth as needed for Erectile Dysfunction. 30 Tab 3 0 Active Encounters Date Type Department Care Team Description 06/01[facility] [address] [place] [address] Milton Pat MD Procedure; Appointment [facility]20[facility] [address] [place] [address] Augustin Hanson MD from Last 3 Months Family History Medical History Relation Name Comments [...] on file Legal Sex Male 11:26 AM PANEL WIRER Gender Identity Not on file Sexual Orientation Not on file Last Filed Vital Signs Vital Sign Reading Time Taken Comments Blood Pressure 110/70 09/01/2019 3:01 PM PANEL WIRER Pulse 59 09/01/2019 3:01 PM PANEL WIRER Temperature 36.5 C (97.7 F) 09/01/2019 3:01 PM PANEL WIRER Respiratory Rate 14 09/01/2019 3:01 PM PANEL WIRER Oxygen Saturation 97% 09/01/2019 3:01 PM PANEL WIRER Inhaled Oxygen Concentration - - Weight 101.6 kg (224 lb) 09/01/2019 3:01 PM PANEL WIRER Height 172.7 cm (5' 8) 09/01/2019 3:01 PM PANEL WIRER Body Mass Index 34.06 09/01/2019 3:01 PM PANEL WIRER Plan of Treatment Health Maintenance Due Date Last Done Comments Hepatitis C Virus (HCV) Screening 1961 TdaP Immunization 1961 Cologuard 2006 Colonoscopy 2006 Colorectal Cancer Screening 2006 Immunochemical Fecal Occult Blood 2006 Pneumococcal Immunization (5 0+ years) (1 of 1 - PCV) 2011 Zoster Immunization (1 of 2) 2011 PSA Discussion 2016 Influenza Immunization (#1) 2025 SARS-COV-2 Immunization (1 - 2024- season) 2025 Respiratory Syncytial Virus (RSV) Immunization (Adult) (1 - 1-dose 75+ series) 2036 Hepatitis B Immunization Aged Out No longer eligible based on patient's age to complete this topic Human Papillomavirus (HPV) Immunization Aged Out No longer eligible b ased on patient's age to complete this topic Meningococcal Immunization (ACWY) Aged Out No longer eligible based on patient's age to complete this topic Rotavirus Immunization Aged Out No lo nger eligible based on patient's age to complete this topic Insurance MEDICAID [facility] Care Teams 3D Animator Relationship Specialty Start Date End Date Aron Tinsley, [facility] [address] [place] [id number] PCP - General Physician Diesel Engine Assembler 05/23/25
== END 2025-06-20 13:17 | disposition home or self-care (01) ==
PROVIDERS: PCP Physician Assistant; Visit Provider Physician Assistant
DX: M25.561 Pain in right knee (principal)
CPT/HCPCS: 73564

== ENCOUNTER 2025-07-14 07:29 | Outpatient (CLI) | payer OTHER, SELFPAY ==
--- NOTE | ~2025-07-14 | XR_ITS ---
EXAMINATION: XR hip RT min 2V, 07/14/2025 7:40 TICKET DISPENSER CHANGER HISTORY: NON TRAUMA RT FOOT AND HIP PAIN COMPARISON: No comparisons available. Findings: No acute fracture or malalignment. No significant degenerative changes. Soft tissues unremarkable. Impression: No acute fracture or malalignment. Reviewed, dictated and finalized at location P. ET DISPENSER CHANGER Impression: No acute fracture or malalignment.
--- NOTE | ~2025-07-14 | XR_ITS ---
EXAMINATION: XR foot RT min 3V, 07/14/2025 7:40 TAILOR APPRENTICE HISTORY: pain in rt hip and foot NON TRAUMA COMPARISON: No comparisons available. Findings: No acute fracture or malalignment. No significant degenerative changes. Soft tissues unremarkable. Impression: No acute fracture or malalignment. Reviewed, dictated and finalized at location P. OR APPRENTICE Impression: No acute fracture or malalignment.
== END 2025-07-14 07:30 | disposition home or self-care (01) ==
PROVIDERS: PCP Physician Assistant; Visit Provider Physician Assistant
DX: M25.551 Pain in right hip (principal); M79.671 Pain in right foot
CPT/HCPCS: 73502; 73630